=== PATIENT | male | born 1970 | race Caucasian/White ===

== ENCOUNTER 2016-04-23 19:30 | Inpatient (IN) | payer BC ==
[~2016-04-23] VITALS: Ht 188 cm; Wt 128.1 kg
[~2016-04-23 19:30] MED LIST: ASPI-9 PO; CPAP; DLT120CCR PO
[2016-04-23] MEDS ORDERED: ASPIRIN 81 MG CHEW (CHILDREN'S ASA) PO ONE (19:45)
[2016-04-23] MEDS ORDERED: OSLT75C PO (19:47)
[2016-04-23] MEDS ORDERED: FLEC100T PO (19:47)
[2016-04-23] MEDS ORDERED: METO-270 PO (19:47)
[2016-04-23] MEDS ORDERED: CEFD300C3 PO (19:47)
[2016-04-23] MEDS ORDERED: [UNRECOGNIZED DRUG - CODE] PO (19:47)
[2016-04-23 20:02] LABS: BASOPHILS % (AUTO) 0 % (0-10); EOSINOPHILS # (AUTO) 0.1 10^3/uL (0.0-0.3); EOSINOPHILS % (AUTO) 2 % (0-10); LYMPHOCYTES # (AUTO) 1.5 X 10^3 (1.0-4.0); LYMPHOCYTES % (AUTO) 19 % (12-44); MEAN CORPUSCULAR HEMOGLOBIN 30 PG (25-34); MEAN CORPUSCULAR HGB CONC 35 G/DL (32-36); MEAN CORPUSCULAR VOLUME 83 FL (80-99); MEAN PLATELET VOLUME 10.9 FL (7.4-10.4); MONOCYTES # (AUTO) 1.6 X 10^3 (0.0-1.0); MONOCYTES % (AUTO) 21 % (0-12); NEUTROPHILS # (AUTO) 4.4 X 10^3 (1.8-7.8); NEUTROPHILS % (AUTO) 58 % (42-75); PLATELET COUNT 171 10^3/uL (130-400); RED BLOOD COUNT 5.25 10^6/uL (4.35-5.85); RED CELL DISTRIBUTION WIDTH 14.9 % (10.0-14.5); WHITE BLOOD COUNT 7.6 10^3/uL (4.3-11.0)
--- NOTE | 2016-04-23 20:09 | Diagnostic Imaging Report ---
Indication: Fever and chills. Comparison: None. Findings: Two views of the chest are obtained. Heart size is upper limits of normal. The pulmonary vessels do not appear congested. There are bilateral basilar opacities either atelectasis or infiltrate, possibly a combination of both. The upper lungs appear clear. No pleural fluid is suspected. The osseous structures appear unremarkable. Impression: Bilateral basilar airspace disease, likely representing atelectasis, infiltrate or both. Short-term followup study is recommended to document resolution. Dictated by: Dictated on workstation # [id number]
[2016-04-23 20:17] LABS: MAGNESIUM 2.2 MG/DL (1.8-2.4)
[2016-04-23] MEDS ORDERED: NS IV 1000 ML 1,000 ML IV ONE (20:17)
[2016-04-23 20:24] LABS: ALANINE AMINOTRANSFERASE 92 U/L (0-55); ALBUMIN 3.9 G/DL (3.2-4.5); ANION GAP 12 MMOL/L (5-14); ASPARTATE AMINO TRANSFERASE 47 U/L (5-34); BILIRUBIN,TOTAL 0.8 MG/DL (0.1-1.0); BLOOD UREA NITROGEN 23 MG/DL (7-18); BUN/CREATININE RATIO 21; CALCIUM 8.5 MG/DL (8.5-10.1); CARBON DIOXIDE 22 MMOL/L (21-32); CHLORIDE 105 MMOL/L (98-107); CREATININE SERUM 1.08 MG/DL (0.60-1.30); GFR ESTIMATED > 60; GLUCOSE 95 MG/DL (70-105); POTASSIUM 3.6 MMOL/L (3.6-5.0); SODIUM 139 MMOL/L (135-145); TOTAL PROTEIN 7.3 G/DL (6.4-8.2); hs C REACTIVE PROTEIN 9.21 MG/DL (0.00-0.50)
[2016-04-23 20:32] LABS: MYOGLOBIN SERUM 40.1 NG/ML (10.0-92.0)
[2016-04-23 20:46] LABS: BAND NEUTROPHILS 6 %; NEUTROPHILS % (MANUAL) 45 %
[2016-04-23 20:47] LABS: ANISOCYTOSIS SLIGHT; BASOPHILS % (MANUAL) 0 %; EOSINOPHILS % (MANUAL) 0 %; LYMPHOCYTES % (MANUAL) 18 %; REACTIVE LYMPHOCYTES 19 %
[2016-04-23] MEDS ORDERED: cefTRIAXone INJECTION 1,000 MG in NORMAL SALINE (BAXTER MINI) 50 ML IV ONE (21:15)
[2016-04-23] MEDS ORDERED: meTOprolol TARTRATE 25 MG (LOPRESSOR) TABLET PO ONE (21:15)
[2016-04-23] MEDS ORDERED: cefTRIAXone 1 GM (ROCEPHIN) VIAL ONE (21:15)
[2016-04-23] MEDS ORDERED: NS (IVPB) 50 ML ONE (21:18)
--- NOTE | 2016-04-23 21:31 | ED Chest Pain ---
General Chief Complaint: Cardiac/General Problems Stated Complaint: FEVER, BODY ACHES, L SIDE CHEST PAIN, SOA Nursing Triage Note: c/o chest pain and progressive SOA, reports was evaluated yesterday at [facility] urgent care and diagnosed with influenza Nursing Sepsis Screen: Possible Sepsis Risk Source: patient Exam Limitations: no limitations History of Present Illness Time seen by provider: 19:45 Initial Comments Patient is being treated for pneumonia. He was seen at Urgent Care yesterday and received 2 L of IV fluids and was started on Cefdinir. He has chronic atrial fibrillation. He is not anticoagulated because he did not meet scoring criteria for anticoagulation. He was instructed to stop Flecainide and Toprol- XL when seen at Urgent Care which he takes for control of his A. fib because there was concern about his low blood pressure. He is now tachycardic. He complains of pain in the left chest especially with inspiration. He was started on indomethacin by Urgent Care for treatment of the chest pain. Aspirin was administered after assessment. He was started on Tamiflu although he reports his influenza screen was negative. No chest x-ray was performed. Shortness of air is a new symptom today. He is also concerned because he is immunocompromised on Remicade therapy for rheumatoid arthritis. Allergies and Home Medications Allergies Coded Allergies: No Known Drug Allergies (Unverified , 04/23/16) Home Medications (Reported) HS Aspirin/Calcium Carbonate/Mag 325 Mg Tablet 325 MG PO (Reported) Cefdinir 300 Mg Capsule #20 (Reported) Diltiazem Hcl 120 Mg Cap.sr.24h 1 CAP PO DAILY (Reported) DO NOT CRUSH Flecainide Acetate 100 Mg Tablet #60 (Reported) Indomethacin, Submicronized 20 Mg Capsule 20 MG PO Q8H PRN PRN as (Reported) Metoprolol Succinate 25 Mg Tab.er.24h #30 (Reported) Oseltamivir Phosphate 75 Mg Cap #10 (Reported) Review of Systems Constitutional: no symptoms reported EENTM: No Symptoms Reported Respiratory: See HPI Cardiovascular: See HPI Gastrointestinal: No Symptoms Reported Genitourinary: No Symptoms Reported Musculoskeletal: see HPI Skin: no symptoms reported Psychiatric/Neurological: No Symptoms Reported Endocrine: No Symptoms Reported Past Fhymhkn-Rzmbjf-Rowhiu Hx Patient Social History Alcohol Use: Occasionally Uses Recreational Drug Use: No Smoking Status: Never a Smoker Recent Foreign Travel: No Contact w/Someone Who Travel: No Recent Infectious Disease Expo: No Recent Hopitalizations: No Physical Abuse Screen: No Sexual Abuse: No Surgeries HX Surgeries: Yes (ablation) Surgeries: Orthopedic Respiratory Hx Respiratory Disorders: Yes Respiratory Disorders: Pneumonia, Sleep Apnea Cardiovascular Hx Cardiac Disorders: Yes Cardiac Disorders: Atrial Fibrillation, Hypertension Neurological Hx Neurological Disorders: No Reproductive System Hx Reproductive Disorders: No Genitourinary Hx Genitourinary Disorders: No Gastrointestinal Hx Gastrointestinal Disorders: No Musculoskeletal Hx Musculoskeletal Disorders: Yes Musculoskeletal Disorders: Rheumatoid Arthritis Endocrine Hx Endocrine Disorders: No HEENT HX ENT Disorders: No Cancer Hx Cancer: No Psychosocial Hx Psychiatric Problems: No Integumentary HX Skin/Integumentary Disorder: No Blood Transfusions Hx Blood Disorders: No Family Medical History Significant Family History: No Pertinent Family Hx Physical Exam Vital Signs Vital Sign - Last 12Hours 04/23/16 19:39 Temp 98.2 Pulse 112 Resp 18 B/P 108/91 Pulse Ox 94 Capillary Refill : Less Than 3 Seconds General Appearance: No Apparent Distress HEENT: PERRL/EOMI Normal ENT Inspection Neck: Normal Inspection Respiratory: Lungs Clear Normal Breath Sounds No Accessory Muscle Use No Respiratory Distress Cardiovascular: No Edema No Murmur Irregularly Irregular Tachycardia Gastrointestinal: Non Tender Soft Extremity: Normal Inspection Non Tender No Calf Tenderness No Pedal Edema Neurologic/Psychiatric: Alert Oriented x3 No Motor/Sensory Deficits Normal Mood/Affect sanitarian II-XII Norm as Tested Skin: Normal Color Warm/Dry Progress/Results/Core Measures Results/Orders Lab Results Laboratory Tests Test 04/23/16 19:55 04/23/16 21:12 Range/Units Activated Partial Thromboplast Time 38 H 24-35 SEC Alanine Aminotransferase (ALT/SGPT) 92 H 0-55 U/L Albumin 3.9 3.2-4.5 G/DL Alkaline Phosphatase 74 40-136 U/L Anion Gap 12 5-14 MMOL/L Anisocytosis SLIGHT Aspartate Amino Transf (AST/SGOT) 47 H 5-34 U/L B-Type Natriuretic Peptide 52.0 <100.0 PG/ML BUN/Creatinine Ratio 21 Band Neutrophils 6 % Basophils # (Auto) 0.0 0.0-0.1 10^3/uL Basophils % (Manual) 0 % Basophils (%) (Auto) 0 0-10 % Blood Urea Nitrogen 23 H 7-18 MG/DL C-Reactive Protein High Sensitivity 9.21 H 0.00-0.50 MG/DL Calcium Level 8.5 8.5-10.1 MG/DL Carbon Dioxide Level 22 21-32 MMOL/L Chloride Level 105 98-107 MMOL/L Creatinine 1.08 0.60-1.30 MG/DL Eosinophils # (Auto) 0.1 0.0-0.3 10^3/uL Eosinophils % (Manual) 0 % Eosinophils (%) (Auto) 2 0-10 % Estimat Glomerular Filtration Rate > 60 Glucose Level 95 70-105 MG/DL Hematocrit 44 40-54 % Hemoglobin 15.5 13.3-17.7 G/DL INR Comment 1.0 0.8-1.4 Lymphocytes # (Auto) 1.5 1.0-4.0 X 10^3 Lymphocytes % (Manual) 18 % Lymphocytes (%) (Auto) 19 12-44 % Magnesium Level 2.2 1.8-2.4 MG/DL Mean Corpuscular Hemoglobin 30 25-34 PG Mean Corpuscular Hemoglobin Concent 35 32-36 G/DL Mean Corpuscular Volume 83 80-99 FL Mean Platelet Volume 10.9 H 7.4-10.4 FL Monocytes # (Auto) 1.6 H 0.0-1.0 X 10^3 Monocytes % (Manual) 12 % Monocytes (%) (Auto) 21 H 0-12 % Myoglobin 40.1 10.0-92.0 NG/ML Neutrophils # (Auto) 4.4 1.8-7.8 X 10^3 Neutrophils % (Manual) 45 % Neutrophils (%) (Auto) 58 42-75 % Platelet Count 171 130-400 10^3/uL Potassium Level 3.6 3.6-5.0 MMOL/L Prothrombin Time 13.0 12.2-14.7 SEC Reactive Lymphocytes 19 % Red Blood Count 5.25 4.35-5.85 10^6/uL Red Cell Distribution Width 14.9 H 10.0-14.5 % Smudge Cells SLIGHT Sodium Level 139 135-145 MMOL/L TSH Polo Testing 3.06 0.35-4.94 UIU/ML Total Bilirubin 0.8 0.1-1.0 MG/DL Total Protein 7.3 6.4-8.2 G/DL Troponin I < 0.30 <0.30 NG/ML White Blood Count 7.6 4.3-11.0 10^3/uL Lactic Acid Level 0.8 0.5-2.0 MMOL/L Micro Results Microbiology 04/23/16 Influenza Types A,B Antigen (ANITRA) - Final, Complete My Orders Orders-PAULINA CAMP MD Chest Pa/Lat (2 View) (04/23/16 19:42) BNP (04/23/16 19:42) Cbc With Automated Diff (04/23/16 19:42) Comprehensive Metabolic Panel (04/23/16 19:42) Hs C Reactive Protein (04/23/16 19:42) Thyroid Analyzer (04/23/16 19:42) Influenza A And B Antigens (04/23/16 19:42) Saline Lock/Iv-Start (04/23/16 19:42) Ekg Tracing (04/23/16 19:42) Monitor-Rhythm Ecg Trace Only (04/23/16 19:42) Magnesium (04/23/16 19:42) Cardiac Profile 1 (04/23/16 19:42) Myoglobin Serum (04/23/16 19:42) Protime With Inr (04/23/16 19:42) Partial Thromboplastin Time (04/23/16 19:42) Lipid Panel (04/24/16 06:00) Aspirin Chewable Tablet (Baby Aspirin Ch (04/23/16 19:45) Manual Differential (04/23/16 19:55) Ns Iv 1000 Ml (Sodium Chloride 0.9%) (04/23/16 20:17) Lactic Acid Analyzer (04/23/16 21:03) Blood Culture (04/23/16 21:03) Ceftriaxone Injection (Rocephin Injectio (04/23/16 21:15) Metoprolol Tartrate (Ir) Tab (Lopressor (04/23/16 21:15) Ceftriaxone Injection (Rocephin Injectio (04/23/16 21:15) Ns (Ivpb) (Sodium Chloride 0.9% Ivpb Bag (04/23/16 21:18) Medications Given in ED Current Medications Medications Dose Ordered Sig/Marlon Route Start Time Stop Time Status Last Admin Dose Admin Aspirin 324 mg 324 mg ONCE ONCE PO 04/23/16 19:45 04/23/16 19:47 DC 12/31/16 19:49 324 MG Ceftriaxone Sodium/Sodium Chloride 50 ml @ 100 mls/hr ONCE ONCE IV 04/23/16 21:15 04/23/16 21:44 DC 04/23/16 21:23 100 MLS/HR Metoprolol Tartrate 25 mg ONCE ONCE PO 04/23/16 21:15 04/23/16 21:18 DC 04/23/16 21:23 25 MG Sodium Chloride 1,000 ml @ 0 mls/hr Q0M ONCE IV 04/23/16 20:17 04/23/16 20:18 DC 04/23/16 20:27 0 MLS/HR Vital Signs/I&O Vital Sign - Last 12Hours 04/23/16 19:39 Temp 98.2 Pulse 112 Resp 18 B/P 108/91 Pulse Ox 94 Blood Pressure Mean: 97 Progress Note : Progress Note Patient remained tachycardic even after 500 mL of normal saline infusion. He was given metoprolol tartrate 25 mg in the ER. Rocephin was infused for initial treatment of pneumonia. Blood cultures and lactic acid were also drawn and were pending at the time of admission. Patient requested admission which I agreed with. He has essentially failed outpatient therapy. ECG Initial ECG Impression Date: Apr 23, 2016 Initial ECG Impression Time: 19:38 Initial ECG Rate: 125 Initial ECG Rhythm: A Fib/Flutter Initial ECG Impression: Atrial Fibrillation w/RVR Comment Atrial fibrillation with rapid ventricular rate. No acute ST elevation or depression. Diagnostic Imaging Diagonstic Imaging: Xray Plain Films/CT/US/NM/MRI: chest Comments Chest x-ray viewed by me and report reviewed. See report below: NAME: OLEG LOPEZ [facility] REC#: [id number] PT STATUS: REG ER : 1970 PHYSICIAN: PAULINA CAMP MD ADMIT DATE: 04/23/16/ER Signed Date of Exam: 04/23/16 CHEST PA/LAT (2 VIEW) Indication: Fever and chills. Comparison: None. Findings: Two views of the chest are obtained. Heart size is upper limits of normal. The pulmonary vessels do not appear congested. There are bilateral basilar opacities either atelectasis or infiltrate, possibly a combination of both. The upper lungs appear clear. No pleural fluid is suspected. The osseous structures appear unremarkable. Impression: Bilateral basilar airspace disease, likely representing atelectasis, infiltrate or both. Short-term followup study is recommended to document resolution. Dictated by: Dictated on workstation # [id number] Dict: 04/23/162004 Trans: 04/23/162019 [facility] [id number] Interpreted by: MJ IBARRA DO Electronically signed by:MJ IBARRA DO 04/23/162022 Departure Communication Time/Spoke to Admitting Phy: 21:15 Communication Case was reviewed with Dr. Hernandez who agrees with admission and treatment on the pneumonia protocol with Rocephin and doxycycline. He agrees with cardiology consult. Time/Spoke to Consulting Physi: 21:10 Communication/Consulting Case was reviewed with Dr. Reardon who agrees with admission. He would like the patient to receive Toprol immediate release 25 mg twice a day. First dose was ordered now. He will monitor how patient responds with IV hydration and the Toprol tartrate. Impression Impression: Primary Impression: Pneumonia Qualified Code: J18.9 - Pneumonia, unspecified organism Additional Impressions: Chest pain Qualified Code: R07.9 - Chest pain, unspecified Atrial fibrillation with RVR Disposition: ADMITTED INPATIENT Condition: Improved Time/Decision to Admit Time: 21:00 Departure-Patient Inst. Referrals: BRENDON SHARMA DO (PCP) Primary Care Physician Copy Copies To 1: BRENDON SHARMA JOSHUA T MD Apr 23, 2016 21:31
[2016-04-23 22:20] VITALS: BP 125/80
[2016-04-23] MEDS ORDERED: NS IV 1000 ML 1,000 ML ONE (22:25)
[2016-04-23] MEDS ORDERED: ONDANSETRON 4 MG/2 ML (SDV) Z0FRAN IV PRN (22:45)
[2016-04-23 23:00] VITALS: BP 115/78
[2016-04-23] MEDS: DOXYCYCLINE 100 MG/NS 100 ML IVPB IV SCH ×2 (23:04)
[2016-04-23] MEDS: ACETAMINOPHEN 500 MG TAB (TYLENOL) PO PRN (23:06)
[2016-04-23] MEDS: NS IV 1000 ML 1,000 ML IV SCH (23:08)
[2016-04-24] VITALS (7 sets, daily range): BP systolic 107–129; BP diastolic 69–89
[2016-04-24] MEDS: IBUPROFEN 600 MG (MOTRIN) TAB PO PRN ×2 (03:26→17:25)
[2016-04-24 05:32] LABS: BASOPHILS % (AUTO) 0 % (0-10); EOSINOPHILS # (AUTO) 0.2 10^3/uL (0.0-0.3); EOSINOPHILS % (AUTO) 2 % (0-10); LYMPHOCYTES # (AUTO) 1.5 X 10^3 (1.0-4.0); LYMPHOCYTES % (AUTO) 20 % (12-44); MEAN CORPUSCULAR HEMOGLOBIN 30 PG (25-34); MEAN CORPUSCULAR HGB CONC 35 G/DL (32-36); MEAN CORPUSCULAR VOLUME 84 FL (80-99); MEAN PLATELET VOLUME 10.9 FL (7.4-10.4); MONOCYTES # (AUTO) 1.5 X 10^3 (0.0-1.0); MONOCYTES % (AUTO) 19 % (0-12); NEUTROPHILS # (AUTO) 4.4 X 10^3 (1.8-7.8); NEUTROPHILS % (AUTO) 58 % (42-75); PLATELET COUNT 155 10^3/uL (130-400); RED BLOOD COUNT 4.82 10^6/uL (4.35-5.85); WHITE BLOOD COUNT 7.5 10^3/uL (4.3-11.0)
[2016-04-24] MEDS: NS IV 1000 ML 1,000 ML IV SCH ×3 (05:33→19:51)
[2016-04-24 05:43] LABS: hs C REACTIVE PROTEIN 7.88 MG/DL (0.00-0.50)
[2016-04-24 05:45] LABS: CHOLESTEROL 141 MG/DL (< 200); DIRECT LDL 87 MG/DL (1-129); TRIGLYCERIDES 178 MG/DL (<150); VLDL CHOLESTEROL 36 MG/DL (5-40)
[2016-04-24 05:51] LABS: TROPONIN I < 0.30 NG/ML (<0.30)
[2016-04-24] MEDS: ACETAMINOPHEN 500 MG TAB (TYLENOL) PO PRN (07:43)
--- NOTE | 2016-04-24 08:17 | History & Physicial ---
History of Present Illness History of Present Illness Reason for visit/HPI pain in left lung. Patient went to urgent care tests negative for influenza. Patient put on Ceftin and Tamiflu. Patient has rheumatoid arthritis and taking Remicide. Patient had chest pain eventually air. Has history of pneumonia 3 months ago. Patient has history of atrial fibrillation and is on metoprolol tartrate and flecainide for this. Patient blood pressure low in urgent care and was stopped. Family history parents diabetes. Patient admits to [facility] Date of Admission Apr 23, 2016 at 21:35 I consulted on this patient on 04/24/16 08:12 Attending Physician Christiane Tavarez DO Admitting Physician Christiane Tavarez DO Consult Allergies and Home Medications Allergies Coded Allergies: No Known Drug Allergies (Unverified , 04/23/16) Home Medications (Reported) HS Aspirin/Calcium Carbonate/Mag 325 Mg Tablet 325 MG PO (Reported) Cefdinir 300 Mg Capsule #20 (Reported) Diltiazem Hcl 120 Mg Cap.sr.24h 1 CAP PO DAILY (Reported) DO NOT CRUSH Flecainide Acetate 100 Mg Tablet #60 (Reported) Indomethacin, Submicronized 20 Mg Capsule 20 MG PO Q8H PRN PRN as (Reported) Metoprolol Succinate 25 Mg Tab.er.24h #30 (Reported) Oseltamivir Phosphate 75 Mg Cap #10 (Reported) Past Mtzzkjg-Zzkapx-Aabrab Hx Patient Social History Employed/Student: employed Alcohol Use: Regular Use Recreational Drug Use: No Smoking Status: Never a Smoker Physical Abuse Screen: No Sexual Abuse: No Recent Foreign Travel: No Contact w/other who traveled: No Recent Hopitalizations: No Recent Infectious Disease Expo: No Immunizations Up To Date Date of Influenza Vaccine: Jan 23, 2016 Seasonal Allergies Seasonal Allergies: No Surgeries HX Surgeries: Yes (ablation) Surgeries: Orthopedic Respiratory Hx Respiratory Disorders: Yes Cardiovascular Hx Cardiovascular Disorders: Yes Cardiac Disorders: Atrial Fibrillation, Hypertension Neurological Hx Neurological Disorders: No Reproductive System Hx Reproductive Disorders: No Genitourinary Hx Genitourinary Disorders: No Gastrointestinal Hx Gastrointestinal Disorders: No Musculoskeletal Hx Musculoskeletal Disorders: Yes Musculoskeletal Disorders: Rheumatoid Arthritis Endocrine Hx Endocrine Disorders: No HEENT HX ENT Disorders: No Cancer Hx Cancer: No Psychosocial Hx Psychiatric Problems: No Integumentary HX Skin/Integumentary Disorder: No Blood Transfusions Hx Blood Disorders: No Family Medical History Significant Family History: No Pertinent Family Hx Family Hx: Black Lung 19 FATHER Diabetes mellitus 19 FATHER 19 MOTHER FH: uterine cancer 19 MOTHER Hypertension 19 FATHER 19 MOTHER Constitutional: weakness EENTM: no symptoms reported Respiratory: cough other (health like pneumonia) Cardiovascular: other (history of atrial fibrillation) Gastrointestinal: diarrhea other (eating less) Genitourinary: no symptoms reported Physical Exam Vital Signs Vital Sign - Last 12Hours 04/23/16 04/23/16 19:39 22:01 Temp 98.2 Pulse 112 Resp 18 B/P 108/91 Pulse Ox 94 O2 Delivery Room Air Capillary Refill : Less Than 3 Seconds General Appearance: No Apparent Distress WD/WN Eyes: Bilateral Eye Normal Inspection HEENT: Normal ENT Inspection Neck: Full Range of Motion Non Tender Respiratory: No Accessory Muscle Use No Respiratory Distress Cardiovascular: Irregularly Irregular Gastrointestinal: Non Tender Soft Assessment/Plan Assessment and Plan pneumonia. A. fib RVR area Chest pain Clinical Quality Measures DVT/VTE Risk/Contraindication: Risk Factor Score Per Nursin RFS Level Per Nursing on Admit: 2=Moderate MARY LOU LING DO Apr 24, 2016 08:17
[2016-04-24] MEDS ORDERED: meTOprolol TARTRATE 25 MG (LOPRESSOR) TABLET PO SCH (09:00)
[2016-04-24] MEDS: ASPIRIN 325 MG (5 GR) TABLET PO SCH (09:46)
[2016-04-24] MEDS: DOXYCYCLINE 100 MG/NS 100 ML IVPB IV SCH ×4 (09:47→21:05)
[2016-04-24] MEDS: HYDROcodone/APAP 7.5 MG/325 MG (LORTAB, LORCET PLUS) TABLET PO PRN ×2 (12:31→21:15)
[2016-04-24] MEDS ORDERED: meTOprolol TARTRATE 25 MG (LOPRESSOR) TABLET PO NR (12:45)
[2016-04-24] MEDS: RT-ALBUTEROL/IPRATROPIUM 3 ML (DUONEB) VIAL INH PRN ×2 (13:24→21:09)
--- NOTE | 2016-04-24 13:34 | Consultation-Cardiology ---
HPI-Cardiology Cardiology Consultation: Date of Consultation 04/24/16 Date of Admission Attending Physician Christiane Tavarez DO Admitting Physician Christiane Tavarez DO Consulting Physician Karyn REARDON MD HPI: Chief Complaint: Chest pain, diarrhea This is a 46-year-old gentleman who presents with chest pain or more shortness of breath and diarrhea. There is a concern of sepsis. He has history of rheumatoid arthritis and is on Remicade. Flu test was negative however he was started on Tamiflu. The patient has history of persistent atrial fibrillation he had possible ablation 4 years ago in [place], however since according to the patient they never went to the left atrium, it is very unlikely to be atrial fibrillation ablation. He saw Dr. Bowers in January for the first time in [place] who started him on flecainide and metoprolol. Since then he has been feeling very weak. Review of Systems-Cardiology Review of Systems Constitutional: malaise tiredness Eyes: No As described under HPI, No no symptoms reported, No blindness, No blurred vision, No contact lenses, No drainage, No decreased acuity, No foreign body sensation, No glasses, No inflammation, No pain, No photophobia, No previous injury, No shadows, No tunnel vision, No other, No vision change Ears/Nose/Throat: No As described under HPI, No no symptoms reported, No chronic hearing loss, No epistaxis, No ear discharge, No ear pain, No loose teeth, No mouth pain, No mouth swelling, No nasal drainage, No nose pain, No recent hearing loss, No throat pain, No throat swelling, No ulcerations, No other Respiratory: No no symptoms reported, No As described under HPI, No cough, No orthopnea, shortness of breathNo SOB with excertion, No SOB at rest, No stridor , No wheezing, No other Cardiovascular: chest pain Gastrointestinal: No no symptoms reported, No As described under HPI, No abdomen distended, No abdominal pain, No blood streaked bowels, No constipation , diarrheaNo difficulty swallowing, No nausea, No poor appetite, No poor fluid intake, No rectal bleeding, No vomiting, No other, No nausea/vomiting/diarrhea, No stool coloration changes Genitourinary: No no symptoms reported, No As described under HPI, No burning, No dysuria, No discharge, No frequency, No flank pain, No hematuria, No incontinence, No pain, No urgency, No other, No urine frequency changes, No urine coloration changes Musculoskeletal: No no symptoms reported, No As describe under HPI, No back pain, No gout, No joint pain, No joint swelling, No muscle pain, No muscle stiffness, No neck pain, No other Skin: No no symptoms reported, No As described under HPI, No change in color, No change in hair/nails, No dryness, No lesions, No lumps, No rash, No other, No skin related problems, No ulcerations, No rash on exposed areas, No ulcerations on exposed areas Psychiatric/Neurological: No As described under HPI, No anxiety, No depression , No emotional problems, No focal weakness, No headache, No no symptoms reported , No numbness, No other, No pre-existing deficit, No seizure, No syncope, No tingling, No tremors, No weakness [id number]-[id number] Hx Patient Social History Employed/Student: employed Alcohol Use: Regular Use Recreational Drug Use: No Smoking Status: Never a Smoker Recent Foreign Travel: No Recent Infectious Disease Expo: No Hospitalization with Isolation: Denies Physical Abuse Screen: No Sexual Abuse: No Immunizations Up To Date Date of Influenza Vaccine: Jan 23, 2016 Past Medical History PMH As described under Assessment. Family Medical History Family History: Black Lung 19 FATHER Diabetes mellitus 19 FATHER 19 MOTHER FH: uterine cancer 19 MOTHER Hypertension 19 FATHER 19 MOTHER Allergies and Home Medications Allergies Coded Allergies: No Known Drug Allergies (Unverified , 04/23/16) Home Medications (Reported) HS Aspirin/Calcium Carbonate/Mag 325 Mg Tablet 325 MG PO (Reported) Cefdinir 300 Mg Capsule #20 2 CAP DAILY (Reported) STARTED 04-22-16 Diltiazem Hcl 120 Mg Cap.sr.24h 1 CAP PO DAILY (Reported) DO NOT CRUSH Flecainide Acetate 100 Mg Tablet #60 100 MG BID (Reported) Indomethacin, Submicronized 20 Mg Capsule 20 MG PO Q8H PRN PRN as (Reported) Metoprolol Succinate 25 Mg Tab.er.24h #30 (Reported) Oseltamivir Phosphate 75 Mg Cap #10 1 CAP BID (Reported) STARTED 04-22-16 Physical Exam-Cardiology Physical Exam Vital Signs/I&O Vital Sign - Last 12Hours 04/24/16 04/24/16 04/24/16 04/24/16 04:00 04:00 06:27 07:00 Temp 98.9 Pulse 89 98 Resp 18 B/P 129/79 Pulse Ox 94 96 96 O2 Delivery Room Air Room Air Room Air 04/24/16 04/24/16 08:00 12:00 Temp 98.1 100.4 Pulse 104 94 Resp 20 20 B/P 126/84 109/77 Pulse Ox 93 95 O2 Delivery Room Air Room Air Capillary Refill : Less Than 3 Seconds Data Review Labs Laboratory Tests 04/23/16 19:55: Activated Partial Thromboplast Time 38H, Alanine Aminotransferase (ALT/SGPT) 92H , Albumin 3.9, Alkaline Phosphatase 74, Anion Gap 12, Anisocytosis SLIGHT, Aspartate Amino Transf (AST/SGOT) 47H, B-Type Natriuretic Peptide 52.0, BUN/ Creatinine Ratio 21, Band Neutrophils 6, Basophils # (Auto) 0.0, Basophils % ( Manual) 0, Basophils (%) (Auto) 0, Blood Urea Nitrogen 23H, C-Reactive Protein High Sensitivity 9.21H, Calcium Level 8.5, Carbon Dioxide Level 22, Chloride Level 105, Creatinine 1.08, Eosinophils # (Auto) 0.1, Eosinophils % (Manual) 0, Eosinophils (%) (Auto) 2, Estimat Glomerular Filtration Rate > 60, Glucose Level 95, Hematocrit 44, Hemoglobin 15.5, INR Comment 1.0, Lymphocytes # (Auto) 1.5, Lymphocytes % (Manual) 18, Lymphocytes (%) (Auto) 19, Magnesium Level 2.2, Mean Corpuscular Hemoglobin 30, Mean Corpuscular Hemoglobin Concent 35, Mean Corpuscular Volume 83, Mean Platelet Volume 10.9H, Monocytes # (Auto) 1.6H, Monocytes % (Manual) 12, Monocytes (%) (Auto) 21H, Myoglobin 40.1, Neutrophils # (Auto) 4.4, Neutrophils % (Manual) 45, Neutrophils (%) (Auto) 58, Platelet Count 171, Potassium Level 3.6, Prothrombin Time 13.0, Reactive Lymphocytes 19, Red Blood Count 5.25, Red Cell Distribution Width 14.9H, Smudge Cells SLIGHT, Sodium Level 139, TSH [place] [facility] Testing 3.06, Total Bilirubin 0.8, Total Protein 7.3, Troponin I < 0.30, White Blood Count 7.6 04/23/16 21:12: Lactic Acid Level 0.8 04/24/16 05:12: Basophils # (Auto) 0.0, Basophils (%) (Auto) 0, C-Reactive Protein High Sensitivity 7.88H, Eosinophils # (Auto) 0.2, Eosinophils (%) (Auto) 2, Hematocrit 41, Hemoglobin 14.3, Lymphocytes # (Auto) 1.5, Lymphocytes (%) (Auto ) 20, Mean Corpuscular Hemoglobin 30, Mean Corpuscular Hemoglobin Concent 35, Mean Corpuscular Volume 84, Mean Platelet Volume 10.9H, Monocytes # (Auto) 1.5H , Monocytes (%) (Auto) 19H, Neutrophils # (Auto) 4.4, Neutrophils (%) (Auto) 58 , Platelet Count 155, Red Blood Count 4.82, Red Cell Distribution Width 15.0H, Troponin I < 0.30, White Blood Count 7.5, Cholesterol Level 141, HDL Cholesterol 20L, LDL Cholesterol Direct 87, Triglycerides Level 178H, VLDL Cholesterol 36 Microbiology 04/23/16 Influenza Types A,B Antigen (ANITRA) - Final, Complete ECG Impression ECG Initial ECG Impression: Atrial Fibrillation, Atrial Fibrillation w/RVR A/P-Cardiology Assessment/Admission Diagnosis 1. Rheumatoid arthritis, 2. Chest pain, 3. Shortness of breath, 4. Atrial fibrillation with rapid ventricular rate, 5. Possible sepsis. Plan Sepsis, rheumatoid arthritis: Deferred to primary team. Diarrhea:? Colitis, Chest pain: 2 sets of troponin are negative. Acute coronary syndrome has been ruled out. Patient will require a nuclear stress test in the near future. Shortness of breath: Request echocardiogram. Atrial fibrillation with rapid ventricular rate: Increase the dose of metoprolol. I discussed at length with the patient and family for over an hour about pathophysiology of atrial fibrillation, diagnostic modalities, treatment options, and once therapeutic options. I also discussed numerous non- pharmacological methods to control atrial fibrillation. We discussed medical therapy, stroke prevention, percutaneous ablation as a treatment for atrial fibrillation. We'll do an echocardiogram. If his left atrial size is not significantly enlarged, I will still consider rhythm control as the strategy to pursue. Before starting any antiarrhythmics, we should rule out significant coronary artery disease. This will be performed with either a nuclear stress test or coronary angiography. If cardioversion will be intended then he will need to be on oral anticoagulation therapy. However I would like his shift commander to confirm that the patient does not have rheumatoid arthritis associated colitis which is associated with high risk of bleeding. Percutaneous ablation at may also be considered in the future. I gave the patient my card and told him that I'll be happy to see him as an outpatient as well or he can continue to follow-up with Dr. Bowers in [place] and I will provide all the details to his office. Thank you for your consultation. Please call me if you have any questions. Robbie Reardon MD, FACP, FACC, FSCAI, FHRS, CCDS Interventional Cardiology Cardiac Electrophysiology Vascular Medicine and Endovascular Interventions Clinical Quality Measures DVT/VTE Risk/Contraindication: Risk Factor Score Per Nursin RFS Level Per Nursing on Admit: 2=Moderate Karyn REARDON MD Apr 24, 2016 1:34 pm
[2016-04-24] MEDS ORDERED: DOXYCYCLINE 100 MG INJ (VIBRAMYCIN) ONE (20:53)
[2016-04-24] MEDS ORDERED: NORMAL SALINE (BAXTER MINI) 100 ML IV ONE (20:54)
[2016-04-24] MEDS: meTOprolol TARTRATE 50 MG (LOPRESSOR) TAB PO SCH (21:05)
[2016-04-24] MEDS ORDERED: NORMAL SALINE (BAXTER MINI) 50 ML IV ONE (22:17)
[2016-04-24] MEDS ORDERED: cefTRIAXone 1 GM (ROCEPHIN) VIAL ONE (22:17)
[2016-04-24] MEDS: cefTRIAXone 1 GM/NS 50 ML IVPB IV SCH ×2 (22:37)
[2016-04-25 01:04] VITALS: BP 102/69
[2016-04-25 04:00] VITALS: BP 111/73
[2016-04-25] MEDS: NS IV 1000 ML 1,000 ML IV SCH ×3 (05:00→15:06)
[2016-04-25 05:08] LABS: BASOPHILS % (AUTO) 1 % (0-10); EOSINOPHILS # (AUTO) 0.2 10^3/uL (0.0-0.3); EOSINOPHILS % (AUTO) 3 % (0-10); LYMPHOCYTES # (AUTO) 1.6 X 10^3 (1.0-4.0); LYMPHOCYTES % (AUTO) 28 % (12-44); MEAN CORPUSCULAR HEMOGLOBIN 29 PG (25-34); MEAN CORPUSCULAR HGB CONC 34 G/DL (32-36); MEAN CORPUSCULAR VOLUME 86 FL (80-99); MEAN PLATELET VOLUME 10.8 FL (7.4-10.4); MONOCYTES # (AUTO) 0.9 X 10^3 (0.0-1.0); MONOCYTES % (AUTO) 16 % (0-12); NEUTROPHILS # (AUTO) 2.9 X 10^3 (1.8-7.8); NEUTROPHILS % (AUTO) 52 % (42-75); PLATELET COUNT 154 10^3/uL (130-400); RED CELL DISTRIBUTION WIDTH 14.9 % (10.0-14.5); WHITE BLOOD COUNT 5.6 10^3/uL (4.3-11.0)
[2016-04-25 05:34] LABS: ALANINE AMINOTRANSFERASE 67 U/L (0-55); ALBUMIN 3.2 G/DL (3.2-4.5); ANION GAP 9 MMOL/L (5-14); ASPARTATE AMINO TRANSFERASE 40 U/L (5-34); BILIRUBIN,TOTAL 0.6 MG/DL (0.1-1.0); BLOOD UREA NITROGEN 16 MG/DL (7-18); BUN/CREATININE RATIO 17; CARBON DIOXIDE 21 MMOL/L (21-32); CHLORIDE 111 MMOL/L (98-107); CREATININE SERUM 0.94 MG/DL (0.60-1.30); GFR ESTIMATED > 60; GLUCOSE 91 MG/DL (70-105); POTASSIUM 3.6 MMOL/L (3.6-5.0); SODIUM 141 MMOL/L (135-145); TOTAL PROTEIN 6.1 G/DL (6.4-8.2)
[2016-04-25 07:41] VITALS: BP 128/84
[2016-04-25] MEDS: RT-ALBUTEROL/IPRATROPIUM 3 ML (DUONEB) VIAL INH PRN (07:59)
--- NOTE | 2016-04-25 08:46 | Diagnostic Imaging Report ---
INDICATION: Pneumonia. COMPARISON: 04/23/2016. FINDINGS: The left lower lobe infiltrate has progressed from the prior exam. The right lung is clear. The heart is mildly enlarged, perhaps slightly increased although exaggerated by the AP portable technique. IMPRESSION: Worsened left lower lobe pneumonia. Questionable findings for increased heart size. Dictated by: Dictated on workstation # [id number]
[2016-04-25] MEDS: ACETAMINOPHEN 500 MG TAB (TYLENOL) PO PRN (08:47)
[2016-04-25] MEDS: meTOprolol TARTRATE 50 MG (LOPRESSOR) TAB PO SCH ×2 (08:47→23:05)
[2016-04-25] MEDS: DOXYCYCLINE 100 MG/NS 100 ML IVPB IV SCH ×4 (09:32→23:04)
[2016-04-25] MEDS: ASPIRIN 325 MG (5 GR) TABLET PO SCH (09:32)
[2016-04-25] MEDS: metroNIDAZOLE 500 MG (FLAGYL) TAB PO SCH ×3 (09:37→23:05)
[2016-04-25 11:15] VITALS: BP 132/82
--- NOTE | 2016-04-25 13:07 | Progress Note (SOAP) ---
Subjective Subjective/Events-last exam Fwup pneumonia with sepsis, atrial fibrillation with RVR, diarrhea. Feeling better. Still with diarrhea. Objective Exam Vital Signs Date Time Temp Pulse Resp B/P Pulse Ox O2 Delivery O2 Flow Rate FiO2 04/25/16 11:15 97.9 90 18 132/82 95 Room Air 04/25/16 09:00 Room Air 04/25/16 08:00 Room Air 04/25/16 07:59 93 Room Air 04/25/16 07:41 98.4 80 20 128/84 94 Room Air 04/25/16 07:00 77 04/25/16 04:00 93 Room Air 04/25/16 04:00 98.9 97 16 111/73 93 Room Air 04/25/16 01:04 97.5 67 16 102/69 96 Room Air 04/25/16 01:00 67 04/25/16 00:50 96 Room Air 04/24/16 21:10 97 Room Air 04/24/16 21:00 Room Air 04/24/16 20:00 97.2 80 20 116/89 96 Room Air 04/24/16 20:00 96 Room Air 04/24/16 19:00 103 04/24/16 16:00 100.0 101 20 108/74 92 Room Air 04/24/16 16:00 92 Room Air 04/24/16 13:25 96 Room Air I & O 04/25/16 07:00 Intake Total 3670 ml Output Total 1300 ml Balance 2370 ml Capillary Refill : Less Than 3 Seconds General Appearance: No Apparent Distress Neck: Supple Respiratory: Crackles (left base) Decreased Breath Sounds Cardiovascular: Gallop/S3 Irregularly Irregular Gastrointestinal: normal bowel sounds non tender soft Extremity: Non Tender No Calf Tenderness No Pedal Edema Neurologic/Psychiatric: Alert Oriented x3 Results Lab Laboratory Tests 04/25/16 04:56: Alanine Aminotransferase (ALT/SGPT) 67H, Albumin 3.2, Alkaline Phosphatase 67, Anion Gap 9, Aspartate Amino Transf (AST/SGOT) 40H, BUN/Creatinine Ratio 17, Basophils # (Auto) 0.0, Basophils (%) (Auto) 1, Blood Urea Nitrogen 16, Calcium Level 8.0L, Carbon Dioxide Level 21, Chloride Level 111H, Creatinine 0.94, Eosinophils # (Auto) 0.2, Eosinophils (%) (Auto) 3, Estimat Glomerular Filtration Rate > 60, Glucose Level 91, Hematocrit 39L, Hemoglobin 13.2L, Lymphocytes # (Auto) 1.6, Lymphocytes (%) (Auto) 28, Mean Corpuscular Hemoglobin 29, Mean Corpuscular Hemoglobin Concent 34, Mean Corpuscular Volume 86, Mean Platelet Volume 10.8H, Monocytes # (Auto) 0.9, Monocytes (%) (Auto) 16H , Neutrophils # (Auto) 2.9, Neutrophils (%) (Auto) 52, Platelet Count 154, Potassium Level 3.6, Red Blood Count 4.50, Red Cell Distribution Width 14.9H, Sodium Level 141, Total Bilirubin 0.6, Total Protein 6.1L, White Blood Count 5.6 Microbiology 04/23/16 Blood Culture - Preliminary, Resulted No growth 04/23/16 Influenza Types A,B Antigen (ANITRA) - Final, Complete Assessment/Plan Assessment/Plan Assess & Plan/Chief Complaint 1. Pneumonia with Sepsis--continue abx and add IS 2. Diarrhea--add flagyl and probiotic 3. Atrial Fibrillation with RVR--cardiology managing Diagnosis/Problems: Clinical Quality Measures DVT/VTE Risk/Contraindication: Risk Factor Score Per Nursin RFS Level Per Nursing on Admit: 2=Moderate BRENDON SHARMA DO Apr 25, 2016 13:07
--- NOTE | 2016-04-25 13:43 | Cardiology Progress Note ---
Cardiology SOAP Progress Note Subjective: stable Objective: I&O/Vital Signs Vital Sign - Last 12Hours 04/25/16 04/25/16 04/25/16 04/25/16 09:00 11:15 12:00 13:00 Temp 97.9 Pulse 90 68 Resp 18 B/P 132/82 Pulse Ox 95 O2 Delivery Room Air Room Air Room Air 04/25/16 04/25/16 04/25/16 04/25/16 16:00 16:00 19:00 19:26 Temp 97.9 97.5 Pulse 73 76 73 Resp 18 18 B/P 113/76 109/78 Pulse Ox 96 95 O2 Delivery Room Air Room Air Room Air 04/25/16 20:38 Pulse Ox 93 O2 Delivery Room Air Intake and Output 04/25/16 00:00 Intake Total 2070 ml Output Total 500 ml Balance 1570 ml Weight (Pounds): 261 Weight (Ounces): 8.0 Weight (Calculated Kilograms): 118.128002 Constitutional: No appears stated age, No AAO x 3, No apparent distress, No PERRL, No well-developed, No well-nourished, No other Respiratory: No accessory muscle use, No respiratory distress, No chest tender , No chest expansion is symmetric, No chest is bilaterally symmetric, No lungs clear to percussion, No lungs clear to auscultation, No crackles, No rhonchi, No rales, No stridor, No wheezing, No pleural rub, No other Cardiovascular: No regular rate-rhythm, irregularly irregularNo extra beats, No parasternal heave is noted, No JVD, No edema, No bradycardia, No tachycardia , No point of maximal impulse, No cardiac thrills are palpable, No S1 and S2, No gallop/S3, No gallop/S4, No diastolic murmur, No systolic murmur, No friction rub, No click, No other Gastrointestional: No tender, No soft, No round, No distended, No pulsatile mass, No organomegaly, No guarding, No rebound, No tenderness, No hernia, No mass, No audible bowel sounds, No abnormal bowel sounds, No abdominal bruits, No spleenomegaly, No other Extremities: No normal range of motion, No non-tender, No normal inspection, No pedal edema, No calf tenderness, No normal capillary refill, No pelvis stable , No calf tenderness, No inflammation, No pedal edema, No slow capillary refill , No swelling, No other, No abrasion, No clubbing, No cyanosis, No ecchymosis, No laceration, No no lower extremity edema bilateral, No significant edema, No tenderness, No wound Neurologic/Psychiatric: No necktie maker II-XII nml as tested, No no motor/sensory deficits, No alert, No normal mood/affect, No oriented x 3, No abnormal cerebellar tests, No abnormal necktie maker II-XII, No abnormal gait, No aphasia, No EOM palsy, No facial droop, No motor weakness, No sensory deficit, No depressed affect, No disoriented x 3, No other, No grossly intact, No power is 5/5 both on sides Skin: No normal color, No warm/dry, No cyanosis, No cool, No diaphoresis, No damp, No ecchymosis, No jaundice, No mottled, No pallor, No rash, No tattoos/ piercings, No ulcerations, No rash on exposed areas, No ulcerations on exposed areas, No other Results/Procedures: Labs Laboratory Tests 04/25/16 04:56: Alanine Aminotransferase (ALT/SGPT) 67H, Albumin 3.2, Alkaline Phosphatase 67, Anion Gap 9, Aspartate Amino Transf (AST/SGOT) 40H, BUN/Creatinine Ratio 17, Basophils # (Auto) 0.0, Basophils (%) (Auto) 1, Blood Urea Nitrogen 16, Calcium Level 8.0L, Carbon Dioxide Level 21, Chloride Level 111H, Creatinine 0.94, Eosinophils # (Auto) 0.2, Eosinophils (%) (Auto) 3, Estimat Glomerular Filtration Rate > 60, Glucose Level 91, Hematocrit 39L, Hemoglobin 13.2L, Lymphocytes # (Auto) 1.6, Lymphocytes (%) (Auto) 28, Mean Corpuscular Hemoglobin 29, Mean Corpuscular Hemoglobin Concent 34, Mean Corpuscular Volume 86, Mean Platelet Volume 10.8H, Monocytes # (Auto) 0.9, Monocytes (%) (Auto) 16H , Neutrophils # (Auto) 2.9, Neutrophils (%) (Auto) 52, Platelet Count 154, Potassium Level 3.6, Red Blood Count 4.50, Red Cell Distribution Width 14.9H, Sodium Level 141, Total Bilirubin 0.6, Total Protein 6.1L, White Blood Count 5.6 Microbiology 04/23/16 Blood Culture - Preliminary, Resulted No growth 04/23/16 Influenza Types A,B Antigen (ANITRA) - Final, Complete A/P: Assessment/Dx: atrial fibrillation, ?sepsis, RA Plan: Sepsis, rheumatoid arthritis: Deferred to primary team. Diarrhea:? Colitis, Chest pain: 2 sets of troponin are negative. Acute coronary syndrome has been ruled out. Patient will require a nuclear stress test tomorrow Shortness of breath: echocardiogram pending. Atrial fibrillation with rapid ventricular rate: Increase the dose of metoprolol. I discussed at length with the patient and family for over an hour about pathophysiology of atrial fibrillation, diagnostic modalities, treatment options, and once therapeutic options. I also discussed numerous non- pharmacological methods to control atrial fibrillation. We discussed medical therapy, stroke prevention, percutaneous ablation as a treatment for atrial fibrillation. We'll do an echocardiogram. If his left atrial size is not significantly enlarged, I will still consider rhythm control as the strategy to pursue. Before starting any antiarrhythmics, we should rule out significant coronary artery disease. This will be performed with either a nuclear stress test or coronary angiography. If cardioversion will be intended then he will need to be on oral anticoagulation therapy. However I would like his entertainment production professional to confirm that the patient does not have rheumatoid arthritis associated colitis which is associated with high risk of bleeding. Percutaneous ablation at may also be considered in the future. I gave the patient my card and told him that I'll be happy to see him as an outpatient as well or he can continue to follow-up with Dr. Bowers in [place] and I will provide all the details to his office. Karyn BONILLA MD Apr 25, 2016 1:43 pm
[2016-04-25 16:00] VITALS: BP 113/76
[2016-04-25] MEDS: LACTOBACILLUS Acidoph/Bulgar (LACTINEX/FLORANEX) TAB PO SCH (16:46)
[2016-04-25] MEDS: IBUPROFEN 600 MG (MOTRIN) TAB PO PRN ×2 (16:48→23:07)
[2016-04-25 19:26] VITALS: BP 109/78
[2016-04-25] MEDS ORDERED: cefTRIAXone 1 GM (ROCEPHIN) VIAL ONE (22:39)
[2016-04-25] MEDS ORDERED: DOXYCYCLINE 100 MG INJ (VIBRAMYCIN) ONE (22:39)
[2016-04-25] MEDS ORDERED: NORMAL SALINE (BAXTER MINI) 100 ML IV ONE (22:40)
[2016-04-25] MEDS ORDERED: NORMAL SALINE (BAXTER MINI) 50 ML IV ONE (22:40)
[2016-04-25] MEDS: cefTRIAXone 1 GM/NS 50 ML IVPB IV SCH ×2 (23:03)
[2016-04-26] VITALS (7 sets, daily range): BP systolic 109–137; BP diastolic 76–93
[2016-04-26] MEDS: LACTOBACILLUS Acidoph/Bulgar (LACTINEX/FLORANEX) TAB PO SCH ×3 (06:00→16:36)
[2016-04-26] MEDS ORDERED: CATHETER FLUSH 10 ML SYR IV PRN (08:00)
[2016-04-26] MEDS ORDERED: REGADENOSON 0.4 MG/5 ML SYR (LEXISCAN) IV ONE ×2 (08:40→09:30)
[2016-04-26] MEDS ORDERED: KETOROLAC 30 MG/ML VIAL IVP PRN (08:45)
[2016-04-26] MEDS: DOXYCYCLINE 100 MG/NS 100 ML IVPB IV SCH ×4 (10:41→21:51)
[2016-04-26] MEDS: meTOprolol TARTRATE 50 MG (LOPRESSOR) TAB PO SCH ×2 (11:01→21:51)
[2016-04-26] MEDS: ASPIRIN 325 MG (5 GR) TABLET PO SCH (11:01)
[2016-04-26] MEDS: metroNIDAZOLE 500 MG (FLAGYL) TAB PO SCH ×3 (11:01→21:51)
[2016-04-26] MEDS ORDERED: INFL100V IV (11:03)
--- NOTE | 2016-04-26 12:37 | Progress Note (SOAP) ---
Subjective Subjective/Events-last exam Fwup pneumonia with sepsis, atrial fibrillation with RVR, diarrhea. Still with diarrhea. Had nuclear stress test this AM. Objective Exam Vital Signs Date Time Temp Pulse Resp B/P Pulse Ox O2 Delivery O2 Flow Rate FiO2 04/26/16 10:46 98.0 77 16 132/91 96 Room Air 04/26/16 08:49 66 137/93 98 04/26/16 07:00 78 04/26/16 04:00 97.6 70 16 109/78 96 Room Air 04/26/16 04:00 Room Air 04/26/16 00:56 76 04/26/16 00:00 Room Air 04/26/16 00:00 98.2 75 18 121/81 96 Room Air 04/25/16 21:00 Room Air 04/25/16 20:38 93 Room Air 04/25/16 19:26 97.5 73 18 109/78 95 Room Air 04/25/16 19:00 76 04/25/16 16:00 97.9 73 18 113/76 96 Room Air 04/25/16 16:00 Room Air 04/25/16 13:00 68 I & O 04/26/16 07:00 Intake Total 2890 ml Output Total 1700 ml Balance 1190 ml Capillary Refill : Less Than 3 Seconds General Appearance: No Apparent Distress Respiratory: Crackles (left base) Decreased Breath Sounds Cardiovascular: Gallop/S3 Irregularly Irregular Gastrointestinal: normal bowel sounds non tender soft Extremity: Non Tender No Calf Tenderness No Pedal Edema Neurologic/Psychiatric: Alert Oriented x3 Results Lab Microbiology 04/23/16 Blood Culture - Preliminary, Resulted No growth 04/23/16 Influenza Types A,B Antigen (ANITRA) - Final, Complete Assessment/Plan Assessment/Plan Assess & Plan/Chief Complaint 1. Pneumonia with Sepsis--continue abx and IS, CXR in AM 2. Diarrhea--continue flagyl and probiotic 3. Atrial Fibrillation with RVR--await stress test results then will plan on DC on blood thinners/antiarrythmics and outpatient cardioversion Diagnosis/Problems: Clinical Quality Measures DVT/VTE Risk/Contraindication: Risk Factor Score Per Nursin RFS Level Per Nursing on Admit: 2=Moderate BRENDON SHARMA DO Apr 26, 2016 12:37 pm
[2016-04-26] MEDS ORDERED: DIPHENOXYLATE/ATROPINE 2.5MG/0.025MG (LOMOTIL) TAB PO PRN (12:45)
[2016-04-26] MEDS: NS IV 1000 ML 1,000 ML IV SCH (13:13)
[2016-04-26] MEDS ORDERED: TEMAZEPAM 15 MG (RESTORIL) CAP PO PRN (19:45)
[2016-04-26] MEDS: RT-ALBUTEROL/IPRATROPIUM 3 ML (DUONEB) VIAL INH SCH (19:59)
--- NOTE | 2016-04-26 20:56 | Cardiology Progress Note ---
Cardiology SOAP Progress Note Subjective: no chest pain Objective: I&O/Vital Signs Vital Sign - Last 12Hours 04/26/16 04/26/16 04/26/16 04/26/16 10:30 10:46 12:00 12:30 Temp 98.0 97.1 Pulse 77 77 Resp 16 16 B/P 132/91 125/76 Pulse Ox 96 96 O2 Delivery Room Air Room Air Room Air Room Air 04/26/16 04/26/16 04/26/16 04/26/16 13:00 16:00 16:37 19:00 Temp 98.0 Pulse 99 75 64 Resp 16 B/P 131/81 Pulse Ox 96 O2 Delivery Room Air Room Air 04/26/16 04/26/16 19:44 20:00 Pulse Ox 96 97 O2 Delivery Room Air Intake and Output 04/26/16 00:00 Intake Total 2150 ml Output Total 900 ml Balance 1250 ml Weight (Pounds): 261 Weight (Ounces): 8.0 Weight (Calculated Kilograms): 118.494235 Constitutional: No appears stated age, No AAO x 3, No apparent distress, No PERRL, No well-developed, No well-nourished, No other Respiratory: No accessory muscle use, No respiratory distress, No chest tender , No chest expansion is symmetric, No chest is bilaterally symmetric, No lungs clear to percussion, No lungs clear to auscultation, No crackles, No rhonchi, No rales, No stridor, No wheezing, No pleural rub, No other Cardiovascular: No regular rate-rhythm, irregularly irregularNo extra beats, No parasternal heave is noted, No JVD, No edema, No bradycardia, No tachycardia , No point of maximal impulse, No cardiac thrills are palpable, No S1 and S2, No gallop/S3, No gallop/S4, No diastolic murmur, No systolic murmur, No friction rub, No click, No other Gastrointestional: No tender, No soft, No round, No distended, No pulsatile mass, No organomegaly, No guarding, No rebound, No tenderness, No hernia, No mass, No audible bowel sounds, No abnormal bowel sounds, No abdominal bruits, No spleenomegaly, No other Extremities: No normal range of motion, No non-tender, No normal inspection, No pedal edema, No calf tenderness, No normal capillary refill, No pelvis stable , No calf tenderness, No inflammation, No pedal edema, No slow capillary refill , No swelling, No other, No abrasion, No clubbing, No cyanosis, No ecchymosis, No laceration, No no lower extremity edema bilateral, No significant edema, No tenderness, No wound Neurologic/Psychiatric: No bore miner operator II-XII nml as tested, No no motor/sensory deficits, No alert, No normal mood/affect, No oriented x 3, No abnormal cerebellar tests, No abnormal bore miner operator II-XII, No abnormal gait, No aphasia, No EOM palsy, No facial droop, No motor weakness, No sensory deficit, No depressed affect, No disoriented x 3, No other, No grossly intact, No power is 5/5 both on sides Skin: No normal color, No warm/dry, No cyanosis, No cool, No diaphoresis, No damp, No ecchymosis, No jaundice, No mottled, No pallor, No rash, No tattoos/ piercings, No ulcerations, No rash on exposed areas, No ulcerations on exposed areas, No other Results/Procedures: Labs Microbiology 04/23/16 Blood Culture - Preliminary, Resulted No growth 04/23/16 Influenza Types A,B Antigen (ANITRA) - Final, Complete A/P: Assessment/Dx: atrial fibrillation, ?sepsis, RA Plan: Sepsis, rheumatoid arthritis: Deferred to primary team. Diarrhea:? Colitis, Chest pain: 2 sets of troponin are negative. Acute coronary syndrome has been ruled out. Nuclear stress testing shows anterior reversible defect; coronary angiogram is recommended. Shortness of breath: echocardiogram shows normal EF, normal LA size. Atrial fibrillation with controlled ventricular rate: will require class Ic anti -arrhythmics; therefore CAD needs to be ruled out. will recommend rhythm control ; cardioversion, ablation. Karyn BONILLA MD Apr 26, 2016 8:55 pm
[2016-04-26] MEDS ORDERED: DOXYCYCLINE 100 MG INJ (VIBRAMYCIN) ONE (21:35)
[2016-04-26] MEDS ORDERED: NORMAL SALINE (BAXTER MINI) 50 ML IV ONE (21:35)
[2016-04-26] MEDS ORDERED: cefTRIAXone 1 GM (ROCEPHIN) VIAL ONE (21:36)
[2016-04-26] MEDS ORDERED: NORMAL SALINE (BAXTER MINI) 100 ML IV ONE (21:36)
[2016-04-26] MEDS: cefTRIAXone 1 GM/NS 50 ML IVPB IV SCH ×2 (21:51)
[2016-04-27] VITALS (12 sets, daily range): BP systolic 36–145; BP diastolic 76–94
[2016-04-27] MEDS ORDERED: NS IV 1000 ML 1,000 ML ONE (06:18)
[2016-04-27] MEDS ORDERED: LIDOCAINE 1% INJ 20 ML (XYLOCAINE) VIAL ONE (06:18)
[2016-04-27] MEDS ORDERED: HEParin (CATH LAB) 2,000 ML IV ONE (06:18)
[2016-04-27] MEDS: LACTOBACILLUS Acidoph/Bulgar (LACTINEX/FLORANEX) TAB PO SCH ×2 (06:19→10:48)
[2016-04-27] MEDS: NS IV 1000 ML 1,000 ML IV SCH (06:19)
[2016-04-27] MEDS: IBUPROFEN 600 MG (MOTRIN) TAB PO PRN (06:19)
[2016-04-27] MEDS ORDERED: MIDAZOLAM 5 MG/5 ML (VERSED) VIAL ONE (06:20)
[2016-04-27] MEDS ORDERED: HEParin 1000 UNIT/ML (10ML VIAL) FOR BOLUS ONE (06:21)
[2016-04-27] MEDS ORDERED: NITROGLYCERIN DRIP 25 MG/D5W 250 ML IV ONE (06:21)
[2016-04-27] MEDS ORDERED: VERAPAMIL 5 MG/2 ML (CALAN) VIAL IV ONE (06:21)
[2016-04-27] MEDS ORDERED: fentaNYL INJECTION 100 MCG/2 ML AMP ONE (06:21)
--- NOTE | 2016-04-27 07:47 | Cardiology Progress Note ---
Cardiology SOAP Progress Note Subjective: mild fever - given motrin Objective: I&O/Vital Signs Vital Sign - Last 12Hours 04/26/16 04/26/16 04/26/16 04/26/16 19:44 20:00 20:00 21:00 Temp 99.7 Pulse 77 Resp 16 B/P 127/90 Pulse Ox 96 95 97 O2 Delivery Room Air Room Air Room Air 04/27/16 04/27/16 01:00 04:00 Temp 100.3 Pulse 64 89 Resp 16 B/P 36/93 Pulse Ox 6 O2 Delivery Room Air Intake and Output 04/27/16 00:00 Intake Total 480 ml Balance 480 ml Weight (Pounds): 282 Weight (Ounces): 8.0 Weight (Calculated Kilograms): [id number] Constitutional: No appears stated age, No AAO x 3, No apparent distress, No PERRL, No well-developed, No well-nourished, No other Respiratory: No accessory muscle use, No respiratory distress, No chest tender , No chest expansion is symmetric, No chest is bilaterally symmetric, No lungs clear to percussion, No lungs clear to auscultation, No crackles, No rhonchi, No rales, No stridor, No wheezing, No pleural rub, No other Cardiovascular: No regular rate-rhythm, irregularly irregularNo extra beats, No parasternal heave is noted, No JVD, No edema, No bradycardia, No tachycardia , No point of maximal impulse, No cardiac thrills are palpable, No S1 and S2, No gallop/S3, No gallop/S4, No diastolic murmur, No systolic murmur, No friction rub, No click, No other Gastrointestional: No tender, No soft, No round, No distended, No pulsatile mass, No organomegaly, No guarding, No rebound, No tenderness, No hernia, No mass, No audible bowel sounds, No abnormal bowel sounds, No abdominal bruits, No spleenomegaly, No other Extremities: No normal range of motion, No non-tender, No normal inspection, No pedal edema, No calf tenderness, No normal capillary refill, No pelvis stable , No calf tenderness, No inflammation, No pedal edema, No slow capillary refill , No swelling, No other, No abrasion, No clubbing, No cyanosis, No ecchymosis, No laceration, No no lower extremity edema bilateral, No significant edema, No tenderness, No wound Neurologic/Psychiatric: No suture gauger II-XII nml as tested, No no motor/sensory deficits, No alert, No normal mood/affect, No oriented x 3, No abnormal cerebellar tests, No abnormal suture gauger II-XII, No abnormal gait, No aphasia, No EOM palsy, No facial droop, No motor weakness, No sensory deficit, No depressed affect, No disoriented x 3, No other, No grossly intact, No power is 5/5 both on sides Skin: No normal color, No warm/dry, No cyanosis, No cool, No diaphoresis, No damp, No ecchymosis, No jaundice, No mottled, No pallor, No rash, No tattoos/ piercings, No ulcerations, No rash on exposed areas, No ulcerations on exposed areas, No other Results/Procedures: Labs Microbiology 04/23/16 Blood Culture - Preliminary, Resulted No growth 04/23/16 Influenza Types A,B Antigen (ANITRA) - Final, Complete A/P: Assessment/Dx: atrial fibrillation, ?sepsis, RA, mild to moderate anterior perfusion - on nuclear stress test. Plan: Sepsis, rheumatoid arthritis: Deferred to primary team. Diarrhea:? Colitis, Chest pain: 2 sets of troponin are negative. Acute coronary syndrome has been ruled out. Nuclear stress testing shows anterior reversible defect; coronary angiogram is recommended. Shortness of breath: echocardiogram shows normal EF, normal LA size. Atrial fibrillation with controlled ventricular rate: will require class Ic anti -arrhythmics; therefore CAD needs to be ruled out. will recommend rhythm control ; cardioversion, ablation. if coronary angiogram normal - start eliquis 5mg twice daily and can be discharged to follow up with Dr Tavarez and myself in 3-4 weeks. Karyn BONILLA MD Apr 27, 2016 7:47 am Karyn BONILLA MD Apr 27, 2016 7:47 am
[2016-04-27] MEDS ORDERED: NS IV 1000 ML 1,000 ML IV SCH (07:48)
--- NOTE | 2016-04-27 07:48 | Cardiac Procedure Note-CS/ASA ---
Pre-Procedure Note Pre-Op Procedure Note H&P Reviewed The H&P was reviewed, patient examined and no changes noted. Date H&P Reviewed: Apr 27, 2016 Time H&P Reviewed: 07:00 Conscious Sedation Pre-Proced Time Reviewed: 07:00 ASA Class: 2 Airway Mallampati Classification: (pala appropriate class) I. II. III, IV Lungs Heart ASA score ASA 1: a normal healthy patient ASA 2: a patient with a mild systemic disease (mid diabetes, controlled hypertension, obesity ASA 3: a patient with a severe systemic disease that limits activity (angina , COPD, prior Myocardial infarction) ASA 4: a patient with an incapacitating disease that is a constant threat to life (CHF, renal failure) ASA 5: a moribund patient not expected to survive 24 hrs. (ruptured aneurysm) ASA 6: a declared brain patient whose organs are being harvested. For emergent operations, add the letter E after the classification Grade 1 Sedation Plan: Analgesia, Amnesia, Plan communicated to team members, Discussed options with patient/fam, Discussed risks with patient/fam Note The patient is an appropriate candidate to undergo the planned procedure, sedation, and anesthesia. The patient immediately re-assessed prior to indication. Karyn BONILLA MD Apr 27, 2016 7:48 am
--- NOTE | 2016-04-27 07:51 | Progress Note-Post Operative ---
Post-Operative Progess Note Pre-Operative Diagnosis atrial fibrillation, needs class Ic anti-arrhythmics, abnormal nuclear test Post-Operative Diagnosis patent epicardial coronary arteries Post-Op Procedure Note Date of Procedure: Apr 27, 2016 Name of Procedure: coronary angiography, [facility] Procedure Note/Findings patent vessels Anesthesia Type local anesthesia, conscious sedation Estimated blood loss (mL): 5cc Packing: none Specimen(s) collected none Karyn BONILLA MD Apr 27, 2016 7:51 am
[2016-04-27] MEDS ORDERED: PATIENT MAY USE OWN MEDS, ALL PO SCH (08:00)
[2016-04-27] MEDS ORDERED: APIXABAN 5 MG (ELIQUIS) TABLET PO SCH (09:00)
--- NOTE | 2016-04-27 09:01 | Diagnostic Imaging Report ---
INDICATION: Pneumonia. PA and lateral chest obtained at 6:21 a.m. and compared with 04/25/16. FINDINGS: Heart and mediastinal silhouette are unremarkable. There are chronic appearing increased interstitial markings. There is improvement in the infiltrate in the left midlung and base, without complete resolution. There is some mild right basilar atelectasis. There is no pneumothorax or pleural fluid. IMPRESSION: Improving infiltrate in left midlung and base compared to the prior study of 04/25/16. There is some residual atelectatic change in the right base. There is no pneumothorax or pleural fluid. Dictated by: Dictated on workstation # [id number]
[2016-04-27] MEDS ORDERED: DIPH1TAB25 PO (09:02)
[2016-04-27] MEDS ORDERED: ACID1TAB PO (09:02)
[2016-04-27] MEDS ORDERED: METO50TA2 PO (09:02)
[2016-04-27] MEDS ORDERED: ASPI-808 PO (09:02)
[2016-04-27] MEDS ORDERED: METR500T21 PO (09:02)
[2016-04-27] MEDS ORDERED: APIX5TAB PO (09:02)
[2016-04-27] MEDS ORDERED: DOXY100C2 PO (09:02)
--- NOTE | 2016-04-27 09:04 | Discharge Inst-Simple/Standard ---
Discharge Inst-Standard Discharge Medications New, Converted or Re-Newed RX: Transmitted to Pharmacy Patient Instructions/Follow Up Plan of Care/Instructions/FU: Fwup with me in 1 week Fwup with cardiology in 4 weeks Activity as Tolerated: Yes Discharge Diet: Cardiac Diet BRENDON SHARMA DO Apr 27, 2016 09:04
[2016-04-27] MEDS: RT-ALBUTEROL/IPRATROPIUM 3 ML (DUONEB) VIAL INH SCH (10:26)
--- NOTE | 2016-04-27 10:35 | STRESS TEST ---
PROCEDURE PHYSICIAN: VIVEK REARDON LEXISCAN NUCLEAR STRESS TEST REPORT DATE OF PROCEDURE: 04/26/2016 ATTENDING PHYSICIAN: Dr. Tavarez PERFORMING PHYSICIAN: Dr. Jason Reardon DIAGNOSIS: Atrial fibrillation, shortness of breath, rule out coronary artery disease, before starting Class 1C antiarrhythmic agent PROCEDURE: The patient was brought to the stress lab after informed consent was taken. Lexiscan stress test was administered according to the protocol. Low grade exercise was performed with Lexiscan administration. 0.4 mg of Lexiscan was given intravenously. Baseline electrocardiogram showed atrial fibrillation at heart rate of 74 bpm. Maximum heart rate was 115 bpm. Maximum blood pressure was 137/93 mmHg. The patient did not have any EKG abnormalities during Lexiscan administration including ST changes as well as arrhythmias. The patient did not have any chest pain. Radionuclide isotope was given at peak vasodilatation for stress images. 10.79 mCi of Myoview were given for rest images and 32.4 mCi of Myoview were given for a stress images. Review of the nuclear images show mild to moderate, intermediate size distal anterior wall/apical reversible defect. Stress sum score is 5, SRS 0, SDS 5. TID 0.9. Gated images showed an EF of 58% with no significant wall motion abnormalities. End-diastolic volume: 103 mL and end-systolic volume was 44 mL. CONCLUSION: 1. Pharmacological stress test was negative for ischemia. 2. Mild to moderate distal anterior wall and apical reversible defect noted. 3. Clinical correlation is recommended Job ID: [id number] Dictated Date: 04/27/2016 08:18:00 Back Joiner Date: 04/27/2016 10:27:23 / khari LOZOYA
[2016-04-27] MEDS: meTOprolol TARTRATE 50 MG (LOPRESSOR) TAB PO SCH (10:47)
[2016-04-27] MEDS: DOXYCYCLINE 100 MG/NS 100 ML IVPB IV SCH ×2 (10:47)
[2016-04-27] MEDS: metroNIDAZOLE 500 MG (FLAGYL) TAB PO SCH ×2 (10:47→14:26)
[2016-04-27] MEDS ORDERED: PNEUMOCOCCAL VACCINE 25 MCG/0.5 ML VIAL IM ONE (12:00)
[2016-04-27] MEDS ORDERED: FLU TRIvalent (5 YOA+) 2016-17 (AFLURIA) 0.5 ML IM ONE (12:15)
[2016-04-27] MEDS: cefTRIAXone 1 GM/NS 50 ML IVPB IV SCH ×2 (12:43)
--- NOTE | 2016-04-27 19:12 | Discharge Summary ---
Diagnosis/Chief Complaint Date of Admission Apr 23, 2016 at 9:35 pm Date of Discharge Apr 27, 2016 at 2:25 pm Discharge Date: Apr 27, 2016 Admission Diagnosis Admission Diagnosis pneumonia. A. fib RVR area Chest pain Discharge Diagnosis 1. Left Lower Lobe Pneumonia with Sepsis--improved 2. Atrial Fibrillation with RVR--S/P cardiac workup, rate now controlled 3. Chest Pain from Pleurodynia due to Pneumonia--improved 4. Diarrhea--likely from antibiotics and mild colitis--improving 5. Rheumatoid Arthritis with Chronic Remicade Therapy/Immunosuppression--stable Discharge Summary Hospital Course Hospital Course This is a 46 year old male who was initially seen in Urgent Care and started on outpatient antibiotics for pneumonia. However, he started having chest pain and tachycardia and due to his history of atrial fibrillation and chronic remicade therapy for rheumatoid arthritis, he decided he should be evaluated in the emergency room. He was found to have a left lower lobe pneumonia with concern for sepsis. He was also in atrial fibrillation with RVR. It was decided he should be admitted for further evaluation and treatment. He was admitted and started on rocephin and doxycycline for his pneumonia. Cardiology was consulted and he was started on metoprolol for rate control as well as aspirin and lovenox. A repeat CXR on 04/25/15 showed ongoing left lower lobe infiltrate with possible worsening. However, the patient was afebrile and was feeling better clinically. It was felt that this was likely due to atelectesis so incentive spirometry was started. The patient also had diarrhea during his hospital stay which was felt to be due to mild colitis as well as due to the antibiotics. Due to his immunocompromised state from chronic remicade therapy for his rheumatoid arthritis, flagyl as well as probiotics were added. He was continued on IVF rehydration during his hospital stay due to hypotension on admit and his ongoing diarrhea. The day before discharge he was given one dose of lomotil and his diarrhea was much improved after that. His chest pain improved with treatment of his pneumonia. His appetite also imroved during his hospital stay. However, due to his chest pain on admit and need to be put back on an antiarrhythmic, it was decided he would need a nuclear stress test. This showed some mild anterior wall defect so it was decided to proceed with a cardiac catheterization to rule out underlying coronary arter disease. The cardiac catheterization was accomplished on the morning of his discharge and showed no stenosis in his coronary arteries so he was switched to eliquis and will be restarted on his fleicanide on discharge. The plan will be for cardioversion at a later date after he has been on oral anticoagulants for at least 4 weeks along with rate control with the metoprolol and antiarrhythmic therapy with the fleicanide. He was given his morning dose of doxycycline and given his daily dose of rocephin prior to discharge. He is instructed on rest on discharge and continuing his incentive spirometry. He will start his doxycycline tonight and resume cefdinir tomorrow. He will followup with me in [address] Reardon in 4 weeks. Labs Laboratory Tests 04/25/16 04:56: Alanine Aminotransferase (ALT/SGPT) 67H, Aspartate Amino Transf (AST/SGOT) 40H, Calcium Level 8.0L, Chloride Level 111H, Hematocrit 39L, Hemoglobin 13.2L, Mean Platelet Volume 10.8H, Monocytes (%) (Auto) 16H, Red Cell Distribution Width 14.9H, Total Protein 6.1L Procedures Cardiac Cath by Dr. Reardon on 04/27/[address] Reardon Discharge Physical Examination Allergies: Coded Allergies: No Known Drug Allergies (Unverified , 04/23/16) Vitals & I&Os Vital Signs Date Time Temp Pulse Resp B/P Pulse Ox O2 Delivery O2 Flow Rate FiO2 04/27/16 14:25 83 20 126/89 96 04/27/16 12:50 Room Air 04/27/16 11:50 98.2 General Appearance: Alert, Oriented X3, Cooperative, No Acute Distress Respiratory: Other (better aeration in left lung base with some rhonchi) Cardiovascular: Other (irregularly irregular) Abdominal: Normal Bowel Sounds, Soft, No Tenderness Skin: No Rashes Neuro: Normal Gait Psych/Mental Status: Mental Status NL, Mood NL Discharge Home Medications Reviewed and agree with Discharge Medication list on patient's Discharge Instruction sheet Instructions to Patient/Family Please see electonic discharge instructions given to patient. Clinical Quality Measures DVT/VTE Risk/Contraindication: Risk Factor Score Per Nursin RFS Level Per Nursing on Admit: 2=Moderate BRENDON SHARMA DO Apr 27, 2016 7:12 pm
--- NOTE | 2016-04-29 09:34 | ECHOCARDIOGRAPHY REPORT ---
PROCEDURE PHYSICIAN: VIVEK BONILLA DATE OF PROCEDURE: 04/25/2016 TWO DIMENSIONAL ECHOCARDIOGRAM REPORT PRIMARY PHYSICIAN: OTHER PHYSICIAN: REFERRING PHYSICIAN: ORDERING PHYSICIAN: ATTENDING PHYSICIAN: Dr. Tavarez FAMILY PHYSICIAN: READING PHYSICIAN: INDICATION FOR THE PROCEDURE: Atrial fibrillation. MEASUREMENTS DERIVED VALUES LV DIAMETER (LAX) NORMALS NORMALS Diastolic (3.6-5.2) Eject. Fract. (60%+/-6%) Systolic (2.3-3.9) Diastolic Vol. % Shortening (0.22-0.42) Systolic Vol. Aortic Root IVS THICKNESS Diastolic (0.6-1.1) LVPW THICKNESS Diastolic (0.6-1.1) LA DIAMETER Systolic (2.1-3.7) FINDINGS: 1. Atrial fibrillation. 2. Left atrial size is normal. Left atrial diameter is 3.8 cm. 3. Aortic root dimension is normal. 4. LV systolic function is preserved. LV EF is 70%. Mild concentric LVH is noted. Diastolic intraventricular septal diameter is 1.1. RV size and function is normal. Diastolic function was not evaluated secondary to atrial fibrillation. 5. There is no pericardial. 6. IVC diameter is enlarged. IVC diameter is 2.7 cm. VALVULAR STRUCTURE OF THE HEART: 1. There is trace tricuspid regurgitation with RVSP of 16 mmHg. 2. This no significant mitral valve pathology. 3. There is no significant aortic stenosis or regurgitation. 4. There is no significant pulmonic valve pathology. CONCLUSION: 1. Normal LV and RV size and function. 2. Left atrial size is normal. Left atrial diameter: 3.8 cm. 3. There is no significant valvular heart disease. 4. IVC is mildly dilated at with a diameter of 2.7 cm. Job ID: [id number] Dictated Date: 04/28/2016 20:47:31 Plum Packer Date: 04/29/2016 09:28:43 / ashley LOZOYA
--- NOTE | 2016-05-03 07:48 | CARDIAC CATHETERIZATION ---
PROCEDURE PHYSICIAN: VIVEK BONILLA DATE OF PROCEDURE: 04/27/2016 INDICATION: Atrial fibrillation, shortness of breath, abnormal nuclear stress test. PREOPERATIVE DIAGNOSIS: Atrial fibrillation, shortness of breath, abnormal nuclear stress test. POSTOPERATIVE DIAGNOSES: Patent epicardial coronary arteries. HISTORY: Mr. Gaston is a 46-year-old gentleman with persistent atrial fibrillation. He presented with shortness of breath. We intend to start him on Class 1C antiarrhythmic agent to control his atrial fibrillation. Nuclear stress test was performed to rule out coronary artery disease before we started antiarrhythmic agent. The nuclear stress test showed mild to moderate sized anterior reversible defect. Coronary angiography was recommended. PROCEDURE: 1. Coronary angiography. 2. Left heart catheterization. COMPLICATIONS: None. SPECIMEN: None. ESTIMATED BLOOD LOSS: 10 mL. FINAL RESULTS: Excellent. ANTICOAGULATION: Heparin. CONTRAST: 77 mL of Omnipaque. FLUOROSCOPY TIME: 6.8 minutes. FLUOROSCOPY DOSE: 953 mGy PROCEDURE DETAILS: The patient was brought to the Rollout Manager after informed consent was taken. All the risks and complications were explained. The patient was draped and prepped in the usual sterile fashion. We gained access in the right radial artery with a 6-Sinhala sheath. Coronary angiography and left heart catheterization was performed with a Uday catheter. FINDINGS: 1. Left main is patent. 2. LAD: Patent. 3. Left circumflex artery patent. 4. RCA: Patent. 5. Cardiac catheterization: LV pressure 113/2 mmHg. LVEDP 16 mmHg. Aortic pressure 106/84 mmHg. Normal LV function with no significant wall motion abnormalities. There is no gradient across the aortic valve. CONCLUSION: 1. Patent epicardial coronary arteries. 2. Continue aggressive secondary prevention measures. 3. Start Eliquis, flecainide, metoprolol for atrial fibrillation. Job ID: [id number] Dictated Date: 04/27/2016 09:00:00 Head Of Store Operations Date: 04/27/2016 12:21:50 / khari LOZOYA
== END 2016-04-27 14:25 | disposition home or self-care (01) | DRG 871 ==
LOC: EDUNIT# 19:30 → ER 19:31 → ICU 21:35 → CSD 04-25 03:20
PROVIDERS: ADMIT Family Medicine; ATTEND Family Medicine
PROC: 4A023N7 Measurement of Cardiac Sampling and Pressure, Left Heart, Percutaneous Approach (ICD-10-PCS; principal; 2016-04-27)
PROC: B2151ZZ Fluoroscopy of Left Heart using Low Osmolar Contrast (ICD-10-PCS; 2016-04-27)
PROC: B2101ZZ Fluoroscopy of Single Coronary Artery using Low Osmolar Contrast (ICD-10-PCS; 2016-04-27)
DX: A41.9 Sepsis, unspecified organism (principal); J18.9 Pneumonia, unspecified organism; I48.1 Persistent atrial fibrillation; K52.1 Toxic gastroenteritis and colitis; M06.9 Rheumatoid arthritis, unspecified; I10 Essential (primary) hypertension; G47.30 Sleep apnea, unspecified; T36.1X5A Adverse effect of cephalosporins and other beta-lactam antibiotics, initial encounter; Z23 Encounter for immunization
CPT/HCPCS: 36415; 71010; 71020; 78452; 80053; 80061; 83605; 83735; 83874; 83880; 84443; 84484; 85007; 85025; 85027; 85610; 85730; 86141; 87040; 87804; 90732; 93005; 93017; 93306; 93458; 94640; 94664; 94760; 96361; 96365

== ENCOUNTER → 2016-06-23 | Day surgery (SDC) | payer BC ==
[~2016-06-23] MED LIST changes: +ACID1TAB PO; +APIX5TAB PO; +ASPI-808 PO; +CEFD300C3 PO; +DIPH1TAB25 PO; +DOXY100C2 PO; +FLEC100T PO; +INFL100V IV; +METO-270 PO; +METO50TA2 PO; +METR500T21 PO; +NS IV 1000 ML 1,000 ML IV SCH; +NS IV 1000 ML 1,000 ML ONE; +OSLT75C PO; +[UNRECOGNIZED DRUG - CODE] PO
--- OUTSIDE RECORDS SUMMARY | 2016-06-23 11:41 | XMS REPORT | Continuity of Care Document ---
Author Author [facility] Organization [facility] Address Unknown Phone Unavailable Allergies Active Description Code Type Severity Reaction Onset Reported/Identified Relationship to Patient Clinical Status Yes No Known Drug Allergies [id number] Drug Allergy Unknown N/ A 04/23/2016 Medications Problems Date Dx Coded Attending Type Code Diagnosis Diagnosed By 07/03/2013 LADONNA SKY MD Ot 427.31 ATRIAL FIBRILLATION 07/17/2014 LADONNA SKY MD Ot 278.00 07/17/2014 LADONNA SKY MD Ot 327.23 07/17/2014 LADONNA SKY MD Ot 427.31 07/24/2014 LADONNA SKY MD Ot 278.00 07/24/2014 LADONNA SKY MD Ot 327.23 07/24/2014 LADONNA SKY MD Ot 427.31 04/23/2016 ZACHARY VASQUEZ, BRENDON S Ot 397.0 TRICUSPID VALVE DISEASE 04/23/2016 DECLANNDER DO, BRENDON S Ot 424.0 MITRAL VALVE DISORDER 04/23/2016 DECLANNDER , BRENDON S Ot 427.31 ATRIAL FIBRILLATION 04/23/2016 LADONNA SKY MD Ot 278.00 OBESITY, NOS 04/23/2016 LADONNA SKY MD Ot 327.23 OBSTRUCTIVE SLEEP APNEA (ADULT) (PEDIATR 04/23/2016 LADONNA SKY MD Ot 427.31 ATRIAL FIBRILLATION 04/23/2016 Ot 427.31 ATRIAL FIBRILLATION 04/23/2016 Ot 427.31 ATRIAL FIBRILLATION 04/23/2016 ORENDER DO BRENDON S Ot 397.0 TRICUSPID VALVE DISEASE 04/23/2016 ORENDER DO, BRENDON S Ot 424.0 MITRAL VALVE DISORDER 04/23/2016 DECLANNDER DO, BRENDON S Ot 427.31 ATRIAL FIBRILLATION 04/23/2016 LADONNA SKY MD Ot 278.00 OBESITY, NOS 04/23/2016 LADONNA SKY MD Ot 327.23 OBSTRUCTIVE SLEEP APNEA (ADULT) (PEDIATR 04/23/2016 JOSE DANIEL KAPADIA, LADONNA Bobo Ot 427.31 ATRIAL FIBRILLATION 04/23/2016 Ot 427.31 ATRIAL FIBRILLATION 04/26/2016 ORENDER DO, BRENDON S Ot G47.30 SLEEP APNEA, UNSPECIFIED 04/26/2016 ORENDER DO, BRENDON S Ot I10 ESSENTIAL (PRIMARY) HYPERTENSION 04/26/2016 ORENDER DO, BRENDON S Ot I48.1 PERSISTENT ATRIAL FIBRILLATION 04/26/2016 ORENDER DO, BRENDON S Ot J18.9 PNEUMONIA, UNSPECIFIED ORGANISM 04/26/2016 ORENDER DO, BRENDON S Ot M06.9 RHEUMATOID ARTHRITIS, UNSPECIFIED 04/26/2016 ORENDER DO, BRENDON S Ot R19.7 DIARRHEA, UNSPECIFIED 04/27/2016 ORENDER DO, BRENDON S Ot G47.30 SLEEP APNEA, UNSPECIFIED 04/27/2016 ORENDER DO, BRENDON S Ot I10 ESSENTIAL (PRIMARY) HYPERTENSION 04/27/2016 ORENDER DO, BRENDON S Ot I48.1 PERSISTENT ATRIAL FIBRILLATION 04/27/2016 ORENDER DO, BRENDON S Ot J18.9 PNEUMONIA, UNSPECIFIED ORGANISM 04/27/2016 ORENDER DO, BRENDON S Ot M06.9 RHEUMATOID ARTHRITIS, UNSPECIFIED 04/27/2016 ORENDER DO, BRENDON S Ot R19.7 DIARRHEA, UNSPECIFIED 04/27/2016 ORENDER DO, BRENDON S Ot G47.30 SLEEP APNEA, UNSPECIFIED 04/27/2016 ORENDER DO, BRENDON S Ot I10 ESSENTIAL (PRIMARY) HYPERTENSION 04/27/2016 ORENDER DO, BRENDON S Ot I48.1 PERSISTENT ATRIAL FIBRILLATION 04/27/2016 ORENDER DO, BRENDON S Ot J18.9 PNEUMONIA, UNSPECIFIED ORGANISM 04/27/2016 ORENDER DO, BRENDON S Ot M06.9 RHEUMATOID ARTHRITIS, UNSPECIFIED 04/27/2016 ORENDER DO, BRENDON S Ot R19.7 DIARRHEA, UNSPECIFIED 04/27/2016 ORENDER DO, BRENDON S Ot A41.9 SEPSIS, UNSPECIFIED ORGANISM 04/27/2016 ORENDER DO, BRENDON S Ot G47.30 SLEEP APNEA, UNSPECIFIED 04/27/2016 BRENDON SHARMA DO Ot I10 ESSENTIAL (PRIMARY) HYPERTENSION 04/27/2016 BRENDON SHARMA DO Ot I48.1 PERSISTENT ATRIAL FIBRILLATION 04/27/2016 BRENDON SHARMA DO Ot J18.9 PNEUMONIA, UNSPECIFIED ORGANISM 04/27/2016 BRENDON SHARMA DO Ot K52.1 TOXIC GASTROENTERITIS AND COLITIS 04/27/2016 BRENDON SHARMA DO Ot M06.9 RHEUMATOID ARTHRITIS, UNSPECIFIED 04/27/2016 BRENDON SHARMA DO Ot T36.1X5A ADVERSE EFFECT OF CEPHALOSPOR/OTH BETA-L 04/27/2016 BRENDON SHARMA DO Ot Z23 ENCOUNTER FOR IMMUNIZATION Procedures Code Description Performed By Performed On 1O800H9 MEASURE OF CARDIAC SAMPL PRESSURE, L H 04/27/2016 [id number] FLUOROSCOPY OF SINGLE CORONARY ARTERY US 04/27/2016 [id number] FLUOROSCOPY OF LEFT HEART USING LOW OSMO 04/27/2016 Results Test Result Range Complete blood count (CBC) with automated white blood cell (WBC) differential - 04/23/16 19:55 Blood leukocytes automated count (number/volume) 7.6 10*3/ uL 4.3-11.0 Blood erythrocytes automated count (number/volume) 5.25 10*6 /uL 4.35-5.85 Venous blood hemoglobin measurement (mass/volume) 15.5 g/dL 13.3-17.7 Blood hematocrit (volume fraction) 44 % 40-54 Automated erythrocyte mean corpuscular volume 83 [foz_us] 80-99 Automated erythrocyte mean corpuscular hemoglobin (mass per erythrocyte) 30 pg 25-34 Automated erythrocyte mean corpuscular hemoglobin concentration measurement ( mass/volume) 35 g/dL 32-36 Automated erythrocyte distribution width ratio 14.9 % 10.0-14.5 Automated blood platelet count (count/volume) 171 10*3/uL 130-400 Automated blood platelet mean volume measurement 10.9 [foz_ us] 7.4-10.4 Automated blood neutrophils/100 leukocytes 58 % 42-75 Automated blood lymphocytes/100 leukocytes 19 % 12-44 Blood monocytes/100 leukocytes 21 % 0-12 Automated blood eosinophils/100 leukocytes 2 % 0-10 Automated blood basophils/100 leukocytes 0 % 0-10 Blood neutrophils automated count (number/volume) 4.4 10*3 1.8-7.8 Blood lymphocytes automated count (number/volume) 1.5 10*3 1.0-4.0 Blood monocytes automated count (number/volume) 1.6 10*3 0.0-1.0 Automated eosinophil count 0.1 10*3/uL 0.0-0.3 Automated blood basophil count (count/volume) 0.0 10*3/uL 0.0-0.1 PT panel in platelet poor plasma by coagulation assay - 04/23/16 19:55 Prothrombin time (PT) in platelet poor plasma by coagulation assay 13.0 s 12.2-14.7 INR in platelet poor plasma or blood by coagulation assay 1.0 0.8-1.4 Activated partial thromboplastin time (aPTT) in platelet poor plasma bycoagulation assay - 04/23/16 19:55 Activated partial thromboplastin time (aPTT) in platelet poor plasma bycoagulation assay 38 s 24-35 Magnesium - 04/23/16 19:55 Magnesium 2.2 mg/dL 1.8-2.4 Comprehensive metabolic panel - 04/23/16 19:55 Serum or plasma sodium measurement (moles/volume) 139 mmol/ L 135-145 Serum or plasma potassium measurement (moles/volume) 3.6 mmol/L 3.6-5.0 Serum or plasma chloride measurement (moles/volume) 105 mmol /L 98-107 Carbon dioxide 22 mmol/L 21-32 Serum or plasma anion gap determination (moles/volume) 12 mmol/L 5-14 Serum or plasma urea nitrogen measurement (mass/volume) 23 mg/dL 7-18 Serum or plasma creatinine measurement (mass/volume) 1.08 mg /dL 0.60-1.30 Serum or plasma urea nitrogen/creatinine mass ratio 21 NRG Serum or plasma creatinine measurement with calculation of estimated glomerular filtration rate > NRG Serum or plasma glucose measurement (mass/volume) 95 mg/dL 70-105 Serum or plasma calcium measurement (mass/volume) 8.5 mg/dL 8.5-10.1 Serum or plasma total bilirubin measurement (mass/volume) 0.8 mg/dL 0.1-1.0 Serum or plasma alkaline phosphatase measurement (enzymatic activity/volume) 74 U/L 40-136 Serum or plasma aspartate aminotransferase measurement (enzymatic activity/ volume) 47 U/L 5-34 Serum or plasma alanine aminotransferase measurement (enzymatic activity/volume ) 92 U/L 0-55 Serum or plasma protein measurement (mass/volume) 7.3 g/dL 6.4-8.2 Serum or plasma albumin measurement (mass/volume) 3.9 g/dL 3.2-4.5 Serum or plasma thyrotropin measurement by detection limit <=0.05 miu/l (units/ volume) - 04/23/16 19:55 Serum or plasma thyrotropin measurement by detection limit <=0.05 miu/l (units/ volume) 3.06 u[iU]/mL 0.35-4.94 Serum or plasma troponin i.cardiac measurement (mass/volume) - 04/23/16 19:55 Serum or plasma troponin i.cardiac measurement (mass/volume) < ng/mL <0.30 Myoglobin, serum - 04/23/16 19:55 Myoglobin, serum 40.1 ng/mL 10.0-92.0 Blood manual differential performed detection - 04/23/16 19:55 Blood monocytes/100 leukocytes 12 % NRG Manual blood segmented neutrophils/100 leukocytes 45 % NRG Blood band neutrophils/100 leukocytes 6 % NRG Manual blood lymphocytes/100 leukocytes 18 % NRG Manual eosinophils/100 leukocytes in nose 0 % NRG Manual blood basophils/100 leukocytes 0 % NRG Blood smudge cells detection by light microscopy SLIGHT NRG Blood lymphocytes variant/100 leukocytes 19 % NRG Blood anisocytosis detection by light microscopy SLIGHT NRG Serum or plasma lithium measurement (moles/volume) - 04/23/16 19:55 BNP level 52.0 pg/mL <100.0 Serum or plasma C reactive protein measurement (mass/volume) - 04/23/16 19:55 Serum or plasma C reactive protein measurement (mass/volume) 9.21 mg/dL 0.00-0.50 Influenza virus A and B antigen detection - 04/23/16 20:03 FLU RESULT NEGATIVE FOR INFLUENZA A AND B ANTIGENS BY IA NRG Blood lactic acid measurement (moles/volume) - 04/23/16 21:12 Blood lactic acid measurement (moles/volume) 0.8 mmol/L 0.5-2.0 Bacterial blood culture - 04/23/16 21:12 Bacterial blood culture NG NRG Bacterial blood culture - 04/23/16 21:12 Bacterial blood culture [facility] Complete blood count (CBC) with automated white blood cell (WBC) differential - 04/24/16 05:12 Blood leukocytes automated count (number/volume) 7.5 10*3/ uL 4.3-11.0 Blood erythrocytes automated count (number/volume) 4.82 10*6 /uL 4.35-5.85 Venous blood hemoglobin measurement (mass/volume) 14.3 g/dL 13.3-17.7 Blood hematocrit (volume fraction) 41 % 40-54 Automated erythrocyte mean corpuscular volume 84 [foz_us] 80-99 Automated erythrocyte mean corpuscular hemoglobin (mass per erythrocyte) 30 pg 25-34 Automated erythrocyte mean corpuscular hemoglobin concentration measurement ( mass/volume) 35 g/dL 32-36 Automated erythrocyte distribution width ratio 15.0 % 10.0-14.5 Automated blood platelet count (count/volume) 155 10*3/uL 130-400 Automated blood platelet mean volume measurement 10.9 [foz_ us] 7.4-10.4 Automated blood neutrophils/100 leukocytes 58 % 42-75 Automated blood lymphocytes/100 leukocytes 20 % 12-44 Blood monocytes/100 leukocytes 19 % 0-12 Automated blood eosinophils/100 leukocytes 2 % 0-10 Automated blood basophils/100 leukocytes 0 % 0-10 Blood neutrophils automated count (number/volume) 4.4 10*3 1.8-7.8 Blood lymphocytes automated count (number/volume) 1.5 10*3 1.0-4.0 Blood monocytes automated count (number/volume) 1.5 10*3 0.0-1.0 Automated eosinophil count 0.2 10*3/uL 0.0-0.3 Automated blood basophil count (count/volume) 0.0 10*3/uL 0.0-0.1 Serum or plasma troponin i.cardiac measurement (mass/volume) - 04/24/16 05:12 Serum or plasma troponin i.cardiac measurement (mass/volume) < ng/mL <0.30 Lipid 1996 panel - 04/24/16 05:12 Serum or plasma triglyceride measurement (mass/volume) 178 mg/dL <150 Serum or plasma cholesterol measurement (mass/volume) 141 mg /dL < 200 Serum or plasma cholesterol in HDL measurement (mass/volume) 20 mg/dL 40-60 Cholesterol in LDL [mass/volume] in serum or plasma by direct assay 87 mg/dL 1-129 Serum or plasma cholesterol in VLDL measurement (mass/volume) 36 mg/dL 5-40 Serum or plasma C reactive protein measurement (mass/volume) - 04/24/16 05:12 Serum or plasma C reactive protein measurement (mass/volume) 7.88 mg/dL 0.00-0.50 Complete blood count (CBC) with automated white blood cell (WBC) differential - 04/25/16 04:56 Blood leukocytes automated count (number/volume) 5.6 10*3/ uL 4.3-11.0 Blood erythrocytes automated count (number/volume) 4.50 10*6 /uL 4.35-5.85 Venous blood hemoglobin measurement (mass/volume) 13.2 g/dL 13.3-17.7 Blood hematocrit (volume fraction) 39 % 40-54 Automated erythrocyte mean corpuscular volume 86 [foz_us] 80-99 Automated erythrocyte mean corpuscular hemoglobin (mass per erythrocyte) 29 pg 25-34 Automated erythrocyte mean corpuscular hemoglobin concentration measurement ( mass/volume) 34 g/dL 32-36 Automated erythrocyte distribution width ratio 14.9 % 10.0-14.5 Automated blood platelet count (count/volume) 154 10*3/uL 130-400 Automated blood platelet mean volume measurement 10.8 [foz_ us] 7.4-10.4 Automated blood neutrophils/100 leukocytes 52 % 42-75 Automated blood lymphocytes/100 leukocytes 28 % 12-44 Blood monocytes/100 leukocytes 16 % 0-12 Automated blood eosinophils/100 leukocytes 3 % 0-10 Automated blood basophils/100 leukocytes 1 % 0-10 Blood neutrophils automated count (number/volume) 2.9 10*3 1.8-7.8 Blood lymphocytes automated count (number/volume) 1.6 10*3 1.0-4.0 Blood monocytes automated count (number/volume) 0.9 10*3 0.0-1.0 Automated eosinophil count 0.2 10*3/uL 0.0-0.3 Automated blood basophil count (count/volume) 0.0 10*3/uL 0.0-0.1 Comprehensive metabolic panel - 04/25/16 04:56 Serum or plasma sodium measurement (moles/volume) 141 mmol/ L 135-145 Serum or plasma potassium measurement (moles/volume) 3.6 mmol/L 3.6-5.0 Serum or plasma chloride measurement (moles/volume) 111 mmol /L 98-107 Carbon dioxide 21 mmol/L 21-32 Serum or plasma anion gap determination (moles/volume) 9 mmol/L 5-14 Serum or plasma urea nitrogen measurement (mass/volume) 16 mg/dL 7-18 Serum or plasma creatinine measurement (mass/volume) 0.94 mg /dL 0.60-1.30 Serum or plasma urea nitrogen/creatinine mass ratio 17 NRG Serum or plasma creatinine measurement with calculation of estimated glomerular filtration rate > NRG Serum or plasma glucose measurement (mass/volume) 91 mg/dL 70-105 Serum or plasma calcium measurement (mass/volume) 8.0 mg/dL 8.5-10.1 Serum or plasma total bilirubin measurement (mass/volume) 0.6 mg/dL 0.1-1.0 Serum or plasma alkaline phosphatase measurement (enzymatic activity/volume) 67 U/L 40-136 Serum or plasma aspartate aminotransferase measurement (enzymatic activity/ volume) 40 U/L 5-34 Serum or plasma alanine aminotransferase measurement (enzymatic activity/volume ) 67 U/L 0-55 Serum or plasma protein measurement (mass/volume) 6.1 g/dL 6.4-8.2 Serum or plasma albumin measurement (mass/volume) 3.2 g/dL 3.2-4.5 Encounters ACCT No. Visit Date/Time Discharge Status Pt. Type Provider Facility Loc./Unit Complaint [id number] 04/23/2016 21:35:00 2016 14:25:00 DIS Inpatient BRENDON SHARMA DO [facility] CSD PNEUMONIA,AFIB RVR,CHEST PAIN [id number] 04/04/2013 08:15:00 2013 00:01:00 DIS Outpatient LADONNA SKY MD [facility] CARD AFIB [id number] 05/29/2013 07:49:00 2013 23:59:59 CLS Outpatient LADONNA SKY MD [facility] RAD AFIB,GOUT,[place], [id number] 04/01/2013 15:16:00 2012 23:59:59 CLS Outpatient BRENDON SHARMA DO [facility] CARD NEW ONSET AFIB [id number] 07/04/2013 08:00:00 Document Registration
--- OUTSIDE RECORDS SUMMARY | 2016-06-23 11:44 | XMS REPORT | Continuity of Care Document ---
Author Author [facility] Organization [facility] Address Unknown Phone Unavailable Allergies Active Description Code Type Severity Reaction Onset Reported/Identified Relationship to Patient Clinical Status Yes No Known Drug Allergies [id number] Drug Allergy Unknown N/ A 04/23/2016 Medications [...] Procedures Code Description Performed By Performed On [id number] MEASURE OF CARDIAC SAMPL PRESSURE, L H 04/27/2016 [id number] FLUOROSCOPY OF SINGLE CORONARY ARTERY US 04/27/2016 [id number] FLUOROSCOPY OF LEFT HEART USING LOW OSMO [...] culture - 04/23/16 21:12 Bacterial blood culture [facility] Complete blood count (CBC) with automated white [...] Status Pt. Type Provider Facility Loc./Unit Complaint [id number] 04/23/2016 21:35:00 2016 14:25:00 DIS Inpatient BRENDON SHARMA DO [facility] CSD PNEUMONIA,AFIB RVR,CHEST PAIN [id number] 04/04/2013 08:15:00 2013 00:01:00 DIS Outpatient LADONNA SKY MD [facility] CARD AFIB [id number] 05/29/2013 07:49:00 2013 23:59:59 CLS Outpatient LADONNA SKY MD [facility] RAD AFIB,GOUT,[place], [id number] 04/01/2013 15:16:00 2012 23:59:59 CLS Outpatient BRENDON SHARMA DO [facility] CARD NEW ONSET AFIB [id number] 07/04/2013 08:00:00 Document Registration
[2016-06-23 12:23] LABS: RED BLOOD COUNT 5.14 10^6/uL (4.35-5.85); RED CELL DISTRIBUTION WIDTH 14.9 % (10.0-14.5); WHITE BLOOD COUNT 6.5 10^3/uL (4.3-11.0)
[2016-06-23 12:34] LABS: INR 1.1 (0.8-1.4); PROTHROMBIN TIME PATIENT 14.1 SEC (12.2-14.7)
[2016-06-23 12:42] LABS: ALANINE AMINOTRANSFERASE 103 U/L (0-55); ALBUMIN 4.3 G/DL (3.2-4.5); ANION GAP 11 MMOL/L (5-14); ASPARTATE AMINO TRANSFERASE 55 U/L (5-34); BILIRUBIN,TOTAL 0.9 MG/DL (0.1-1.0); BLOOD UREA NITROGEN 20 MG/DL (7-18); BUN/CREATININE RATIO 20; CALCIUM 9.2 MG/DL (8.5-10.1); CARBON DIOXIDE 21 MMOL/L (21-32); CHLORIDE 109 MMOL/L (98-107); CREATININE SERUM 0.98 MG/DL (0.60-1.30); GFR ESTIMATED > 60; GLUCOSE 92 MG/DL (70-105); POTASSIUM 4.1 MMOL/L (3.6-5.0); SODIUM 141 MMOL/L (135-145); TOTAL PROTEIN 7.7 G/DL (6.4-8.2)
== END | disposition home or self-care (01) ==
LOC: CATH 11:24
PROVIDERS: ATTEND Internal Medicine Interventional Cardiology
DX: I48.91 Unspecified atrial fibrillation (principal); Z53.8 Procedure and treatment not carried out for other reasons
CPT/HCPCS: 36415; 80053; 85027; 85610; 85730; 87081; 93005; 93270

== ENCOUNTER → 2019-01-17 | Day surgery (SDC) | payer BC, OTHER ==
[~2019-01-17] VITALS: Ht 188 cm; Wt 128.8 kg
[~2019-01-17] MED LIST changes: +LIDOCAINE 1% INJ 20 ML 20 ML VIAL INJ ONE; +LIDOCAINE 1% INJ 20 ML 20 ML VIAL ONE; -METO-270 PO; +METO-387 PO; +METO50TA15 PO; -METO50TA2 PO; +METR-145 PO; -METR500T21 PO; -NS IV 1000 ML 1,000 ML IV SCH; -NS IV 1000 ML 1,000 ML ONE
[2019-01-17 08:24] VITALS: BP 141/107
--- NOTE | 2019-01-17 11:44 | Implantation of Loop Monitor ---
Implant of Loop Monitior PROCEDURE PHYSICIAN: Robbie Reardon MD IMPLANTATION OF LOOP MONITOR REPORT DATE OF PROCEDURE: 01/17/19 ATTENDING PHYSICIAN: Dr. Jason Reardon. PERFORMING PHYSICIAN: Dr. Jason Reardon. INDICATION: Long-term surveillance of atrial fibrillation PREOP DIAGNOSIS: Long-term surveillance of atrial fibrillation POSTOP DIAGNOSIS: Atrial fibrillation, s/p implantation of loop recorder. PROCEDURE DETAILS: The patient is a 48 male with history of paroxysmal atrial fibrillation requiring long-term surveillance. Therefore implantable loop recorder was discussed and agreed with the patient. Informed consent was taken. All risks and complications were discussed at length. The patient was draped and prepped in the usual sterile fashion. Local anesthesia was lidocaine, which was given in the substernal area close to the 4th intercostal space. Loop monitor was implanted according to the protocol. Steri-Strips were placed at the end of the procedure. There were no complications and the patient tolerated the procedure well. ANESTHESIA: Local anesthesia with lidocaine. COMPLICATIONS: None CONTRAST/FLUOROSCOPY: None CONCLUSION: 1. Successful implantation of loop monitor for long-term surveillance of atrial fibrillation. 2. No complication and the patient tolerated the procedure well. Robbie Reardon MD, [facility], CCDS Cardiac Electrophysiology Karyn REARDON MD Jan 17, 2019 11:44
== END ==
LOC: CATH 07:45
PROVIDERS: ATTEND Internal Medicine Interventional Cardiology
DX: I48.0 Paroxysmal atrial fibrillation (principal); M19.90 Unspecified osteoarthritis, unspecified site; E78.1 Pure hyperglyceridemia; G47.33 Obstructive sleep apnea (adult) (pediatric); M10.9 Gout, unspecified; E66.9 Obesity, unspecified; Z68.36 Body mass index [BMI] 36.0-36.9, adult; Z83.3 Family history of diabetes mellitus; Z82.49 Family history of ischemic heart disease and other diseases of the circulatory system; Z79.01 Long term (current) use of anticoagulants
CPT/HCPCS: 33285

== ENCOUNTER → 2020-09-24 | Outpatient (CLI) | payer OTHER ==
[~2020-09-24] MED LIST changes: +INDO20CA3 PO; -LIDOCAINE 1% INJ 20 ML 20 ML VIAL INJ ONE; -LIDOCAINE 1% INJ 20 ML 20 ML VIAL ONE; -METO-387 PO; +MTP25TSR PO; -[UNRECOGNIZED DRUG - CODE] PO
--- NOTE | 2020-09-24 10:48 | Diagnostic Imaging Report ---
PROCEDURE: US left lower extremity venous. TECHNIQUE: Multiple real-time grayscale images were obtained over the left lower extremity in various projections. Additional duplex Doppler and color Doppler images were also obtained. INDICATION: Left calf pain. There is no evidence of left lower extremity DVT. Left lower extremity deep venous system shows normal compressibility with normal response to augmentation and Valsalva. There is a fluid collection along the posterior left calf extending from the popliteal fossa measuring 4.4 x 1.1 cm. This could represent a ruptured William's cyst or potentially a muscular injury and hematoma. IMPRESSION: 1. No evidence of left large greg-DVT. 2. Posterior catheter fluid collection, as described above. Dictated by: Dictated on workstation # [id number]
== END ==
LOC: RAD 10:00
PROVIDERS: ATTEND Family Medicine
DX: M79.662 Pain in left lower leg (principal); M79.89 Other specified soft tissue disorders